=== PATIENT | female | born 1980 | race Caucasian/White ===

== ENCOUNTER 2020-02-26 13:30 | Outpatient (REF) | payer OTHER, SELFPAY ==
[2020-02-26 14:29] LABS: Blood Urea Nitrogen 25 mg/dL (9-16); Estimated Glomerular Filt Rate 54
== END 2020-02-26 13:31 | disposition home or self-care (01) ==
LOC: HO.LAB 13:30
PROVIDERS: PCP Hospitalist; Visit Provider Psychiatry & Neurology Neurology
DX: Z01.812 Encounter for preprocedural laboratory examination (principal)
CPT/HCPCS: 82565; 84520

== ENCOUNTER 2020-02-29 16:01 | Outpatient (REF) | payer OTHER, SELFPAY ==
--- NOTE | 2020-02-29 | MR_ITS ---
EXAMINATION: MRI BRAIN WITHOUT AND WITH CONTRAST MR ANGIOGRAM HEAD WITHOUT CONTRAST CLINICAL INFORMATION: Intermittent right mydriasis. Evaluate for mass or aneurysm. COMPARISON: Brain MRI 02/11/2017. TECHNIQUE: Multiplanar MR imaging of the brain was performed without and with contrast. A three-dimensional [id number] acquisition of the intracranial vessels was also performed. MIP reconstructions were generated in multiple orientations at the acquisition workstation. Multiple three-dimensional surface rendered images and maximum intensity projection images were generated on a dedicated 3-D lab workstation. Arterial stenoses are measured in accordance with NASCET criteria or similar method if applicable. A total of 8 mL Gadavist was utilized for this examination. FINDINGS: Postcontrast images reveal no abnormal mass or enhancement within the intracranial compartment. No intracranial mass effect or midline shift. No abnormal extra-axial collection. Lateral and third ventricles are normal. No hydrocephalus. There is no acute territorial infarct. No pathological magnetic susceptibility artifact. Intracranial vascular flow voids are maintained. There is no mastoid middle ear effusion. No active paranasal sinus disease. Dedicated images through the orbits reveal no abnormal finding. Severe no abnormal retrobulbar mass or enhancement. Intracranial internal carotid arteries are patent. Intradural vertebral artery segments and basilar artery are patent. Visualized anterior, middle, and posterior cerebral artery complexes are normal. No high-grade stenosis or proximal occlusion is visualized within the intracranial vessels. No evidence of aneurysm. MR/MR head/brain wo/w con IMPRESSION: Normal MRI of the brain and MR angiogram. No discrete enhancing intracranial mass and no evidence of aneurysm.
--- NOTE | 2020-02-29 | MR_ITS ---
EXAMINATION: MRI BRAIN WITHOUT AND WITH CONTRAST MR ANGIOGRAM HEAD WITHOUT CONTRAST CLINICAL INFORMATION: Intermittent right mydriasis. Evaluate for mass or aneurysm. COMPARISON: Brain MRI 02/11/2017. TECHNIQUE: Multiplanar MR imaging of the brain was performed without and with contrast. A three-dimensional tgig-pp-oprsuj acquisition of the intracranial vessels was also performed. MIP reconstructions were generated in multiple orientations at the acquisition workstation. Multiple three-dimensional surface rendered images and maximum intensity projection images were generated on a dedicated 3-D lab workstation. Arterial stenoses are measured in accordance with NASCET criteria or similar method if applicable. A total of 8 mL Gadavist was utilized for this examination. FINDINGS: Postcontrast images reveal no abnormal mass or enhancement within the intracranial compartment. No intracranial mass effect or midline shift. No abnormal extra-axial collection. Lateral and third ventricles are normal. No hydrocephalus. There is no acute territorial infarct. No pathological magnetic susceptibility artifact. Intracranial vascular flow voids are maintained. There is no mastoid middle ear effusion. No active paranasal sinus disease. Dedicated images through the orbits reveal no abnormal finding. Severe no abnormal retrobulbar mass or enhancement. Intracranial internal carotid arteries are patent. Intradural vertebral artery segments and basilar artery are patent. Visualized anterior, middle, and posterior cerebral artery complexes are normal. No high-grade stenosis or proximal occlusion is visualized within the intracranial vessels. No evidence of aneurysm. MR/MR angio head wo con IMPRESSION: Normal MRI of the brain and MR angiogram. No discrete enhancing intracranial mass and no evidence of aneurysm.
== END 2020-02-29 16:02 | disposition home or self-care (01) ==
LOC: HO.MRI 16:01
PROVIDERS: PCP Hospitalist; Visit Provider Psychiatry & Neurology Neurology
DX: H57.04 Mydriasis (principal)
CPT/HCPCS: 70544; 70553; A9585

== ENCOUNTER → 2020-03-04 12:51 | Outpatient (BNVA) | payer OTHER, SELFPAY | PROVIDERS: PCP Hospitalist; Referring Provider Hospitalist; Visit Provider Obstetrics & Gynecology | DX: Z76.89 Persons encountering health services in other specified circumstances (principal) ==

== ENCOUNTER 2020-06-09 08:53 | Outpatient (REF) | payer OTHER, SELFPAY ==
[2020-06-09 14:52] LABS: CT PCR NOT DETECTED (Not Detect.); NG PCR NOT DETECTED (Not Detect.)
== END 2020-06-09 08:54 | disposition home or self-care (01) ==
LOC: HO.LAB 08:53
PROVIDERS: PCP Hospitalist; Visit Provider Advanced Practice Midwife
DX: Z30.430 Encounter for insertion of intrauterine contraceptive device (principal); Z79.899 Other long term (current) drug therapy; Z32.02 Encounter for pregnancy test, result negative
CPT/HCPCS: 58300; 81025; 87491; 87591; J7298

== ENCOUNTER → 2020-07-25 09:04 | Outpatient (BNVA) | payer OTHER, SELFPAY | PROVIDERS: PCP Hospitalist; Visit Provider Advanced Practice Midwife ==

== ENCOUNTER 2020-09-14 12:00 | Outpatient (RCR) | payer OTHER, SELFPAY ==
--- NOTE | 2020-07-28 15:25 | MHC.PT.EP ---
[facility] [place] Office [place] Office [place] Office [address] Arben Valverde [address] [phone] F: [phone] F: [phone] F: [phone] F: [phone] Physical Therapy Plan of Care Date of Evaluation: Date of Surgery: N/A Diagnosis: strain of other muscles, fascia and tendons at shoulder and upper right arm, initial encounter Assessment: Working PT diagnoses include cervical radiculopathy, muscular tension/spasm, and pain as a result of habitual poor posture. Will monitor symptom progression and treat accordingly. pt did centralize w/ repeated cervical retraction w/ R SB. pt presents to physical therapy with pain, decreased range of motion, decreased strength, impaired functional mobility, and impaired postural awareness. pt is a good candidate for skilled PT due to age, potential remediation of impairments, typical disease/condition progression and prognosis, comorbidities, and motivation. pt would benefit from tailored strengthening and stretching exercise program, functional training, postural re-training, neuromuscular re-education, and modalities as needed for pain. Frequency and Duration: The patient will be seen 2x/wk for 5 wks Short Term Goals: pt will be I w/ HEP to promote self-management of condition. pt will demo proper sitting posture w/ lumbar roll to facilitate neutral spine assessed via teachback. 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 pt will report a statistically significant improvement in self-reported outcome measure, NDI, to promote return to PLOF. Treatment Plan: Modalities to reduce pain, spasms and effusion. Manual therapy to restore motion and function. Therapeutic exercise to improve strength and flexibility. Neuromuscular re-education for posture and balance. Therapeutic activities to return to functional activities of daily living. Electronically signed by: Justina Taylor PT, DPT Please sign and return to therapist. Thank you for your referral.
== END 2020-09-14 14:26 | disposition home or self-care (01) ==
LOC: HO.PT 12:00
PROVIDERS: PCP Family Medicine; Visit Provider Family Medicine
DX: S46.811A Strain of other muscles, fascia and tendons at shoulder and upper arm level, right arm, initial encounter (principal)
CPT/HCPCS: 97012; 97110; 97112; 97140; 97161

== ENCOUNTER → 2020-11-15 12:04 | Outpatient (BNVA) | payer OTHER, SELFPAY | PROVIDERS: PCP Family Medicine; Visit Provider Anesthesiology | DX: M50.30 Other cervical disc degeneration, unspecified cervical region (principal); M54.12 Radiculopathy, cervical region; M47.812 Spondylosis without myelopathy or radiculopathy, cervical region; R51.9 Headache, unspecified; I10 Essential (primary) hypertension; D64.9 Anemia, unspecified; Z88.1 Allergy status to other antibiotic agents; Z88.0 Allergy status to penicillin; Z88.8 Allergy status to other drugs, medicaments and biological substances | CPT/HCPCS: J3300 ==

== ENCOUNTER 2020-11-15 16:31 | Outpatient (REF) | payer OTHER, SELFPAY ==
--- NOTE | ~2020-11-15 | MR_ITS ---
EXAMINATION: MR CERVICAL SPINE WITHOUT CONTRAST CLINICAL INFORMATION: Spondylosis without myelopathy. Radiculopathy. COMPARISON: None available. TECHNIQUE: MRI of the cervical spine was obtained using routine sequences without contrast. FINDINGS: Mild reversal the normal cervical lordosis centered on C4-C5. Otherwise, normal anatomic alignment. Normal, homogeneous marrow signal throughout. No suspicious marrow edema. The vertebral body heights are maintained. The intervertebral discs are of normal height and signal. The spinal cord is normal in appearance. Limited evaluation of the soft tissues of the neck without demonstrated abnormalities. The flow voids of the major cervical vessels are maintained. Normal appearance of the cervicomedullary junction and visualized posterior fossa. SPINAL LEVELS: C2-C3: Normal annular contour. There is no uncovertebral joint arthropathy. There is mild left and no right facet joint arthropathy. There is no neural foraminal stenosis. There is no spinal canal stenosis. C3-C4: Mild disc-osteophyte complex. There is no uncovertebral joint arthropathy. There is mild bilateral facet joint arthropathy. There is no neural foraminal stenosis. There is no spinal canal stenosis. C4-C5: Mild disc-osteophyte complex. There is mild right and no left uncovertebral joint arthropathy. There is mild bilateral facet joint arthropathy. There is no neural foraminal stenosis. There is no spinal canal stenosis. C5-C6: Mild disc-osteophyte complex. There is mild right and no left uncovertebral joint arthropathy. There is mild left and no right facet joint arthropathy. There is no neural foraminal stenosis. There is no spinal canal stenosis. C6-C7: Mild disc-osteophyte complex. There is mild bilateral uncovertebral joint arthropathy. There is no facet joint arthropathy. There is no neural foraminal stenosis. There is no spinal canal stenosis. C7-T1: Normal annular contour. There is no uncovertebral joint arthropathy. There is no facet joint arthropathy. There is no neural foraminal stenosis. There is no spinal canal stenosis. MR/MR cervical spine wo con IMPRESSION: Mild multilevel degenerative spondyloarthropathy of the cervical spine as described in detail above. No overt spinal canal stenosis or nerve root compression.
== END 2020-11-15 16:32 | disposition home or self-care (01) ==
LOC: HO.MRI 16:31
PROVIDERS: PCP Family Medicine; Visit Provider Anesthesiology
DX: M47.812 Spondylosis without myelopathy or radiculopathy, cervical region (principal); M54.12 Radiculopathy, cervical region; M50.30 Other cervical disc degeneration, unspecified cervical region
CPT/HCPCS: 72141

== ENCOUNTER → 2020-12-09 09:10 | Outpatient (BNVA) | payer OTHER, SELFPAY | PROVIDERS: PCP Family Medicine; Visit Provider Advanced Practice Midwife ==

== ENCOUNTER → 2020-12-12 08:36 | Outpatient (BNVA) | payer OTHER, SELFPAY | PROVIDERS: PCP Family Medicine; Visit Provider Advanced Practice Midwife | DX: Z30.431 Encounter for routine checking of intrauterine contraceptive device (principal); Z30.432 Encounter for removal of intrauterine contraceptive device | CPT/HCPCS: 58301 ==

== ENCOUNTER 2021-01-03 16:00 | Outpatient (RCR) | payer OTHER, SELFPAY ==
--- NOTE | 2020-11-23 15:17 | MHC.PT.EP ---
[facility] [place] Office [place] Office [place] Office [address] Arben Valverde [address] [phone] F: [phone] F: [phone] F: [phone] F: [phone] Physical Therapy Plan of Care Date of Evaluation: Date of Surgery: N/A Diagnosis: Cervical spondylosis w/o myelopathy Assessment: Pt is a 40 year old woman who presents to therapy with signs and symptoms consistent with cervical spondylosis. Self reported limitations include pain while sitting at her computer for prolonged periods, pain with lifting and pain with driving. Upon examination, impairments include limited neck ROM, palpable trigger points/tightness in the UTs (R>L) and general neck tightness. Pt shows excellent rehabilitation potential 2* to her age and she is very self aware/motivated. Pt will be seen for 2x/week for 4 weeks and will be reassessed to see if further treatment is necessary. Frequency and Duration: The patient will be seen 2x/week for 4 weeks Short Term Goals: 1. Pt will be I in HEP in 2 weeks in order to maximize benefits of therapy. 2. Pt will be able to sit for > 30 minutes with <2/10 neck pain in 2 weeks order to complete work related computer activities. 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 Pt will decrease score on the NDI from 56% to <46% in 4 weeks to show an increase in ability to perform activities of her daily life. 2. 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 Treatment Plan: Modalities to reduce pain, spasms and effusion. Manual therapy to restore motion and function. Therapeutic exercise to improve strength and flexibility. Neuromuscular re-education for posture and balance. Therapeutic activities to return to functional activities of daily living. Electronically signed by: Jeimy Montes PT, DPT Please sign and return to therapist. Thank you for your referral.
--- NOTE | 2021-01-19 07:44 | MHC.PT.DC ---
[facility] [place] Office [place] Office [place] Office [address] Arben Valverde [address] [phone] F: [phone] F: [phone] F: [phone] F: [phone] Physical Therapy Discharge Report Diagnosis: Cervical spondylosis w/o myelopathy Date of Surgery: N/A Date of Evaluation: 11/23/20 Date of Discharge: 01/05/21 Treatments to Date: 8 Cancellations to Date: 2 No Shows to Date: 1 Discharge Status: Discharge Summary: Asha had been progressing in therapy and was independent with her HEP at last attended visit. She cancelled due to back pain and no showed for her last scheduled visit. Current status is unknown. Electronically signed by: Jeimy Montes PT, DPT Please sign and return to therapist. Thank you for your referral.
== END 2021-01-19 07:46 | disposition home or self-care (01) ==
LOC: HO.PT 16:00
PROVIDERS: Visit Provider Anesthesiology
DX: M47.812 Spondylosis without myelopathy or radiculopathy, cervical region (principal)
CPT/HCPCS: 97012; 97110; 97140; 97161; 97530

== ENCOUNTER → 2021-03-13 12:45 | Outpatient (BNVA) | payer OTHER, SELFPAY | PROVIDERS: Visit Provider Anesthesiology ==

== ENCOUNTER 2021-03-28 05:54 | Outpatient (REF) | payer OTHER, SELFPAY | END 2021-03-28 05:55 | disposition home or self-care (01) | LOC: HO.RADIR 05:54 | PROVIDERS: Visit Provider Anesthesiology | DX: Z13.89 Encounter for screening for other disorder (principal) ==

== ENCOUNTER 2021-05-04 07:49 | Outpatient (REF) | payer OTHER, SELFPAY ==
[2021-05-04 08:39] LABS: Hematocrit 38.4 % (37.0-47.0); Hemoglobin 12.5 g/dl (12.0-16.0); Mean Corpuscular HGB Conc 32.6 g/dl (31.0-35.0); Mean Corpuscular Volume 85.9 fL (80.0-98.0); Platelet Count 215 X10*3/uL (160-400); Red Blood Count 4.47 X10*6/uL (4.20-5.50); Red Cell Distribution Width 12.6 % (11.0-16.0); White Blood Count 5.7 X10*3/uL (4.8-10.8)
[2021-05-04 08:54] LABS: Alanine Aminotransferase 11 U/L (0-31); Albumin Level 4.6 g/dL (3.5-5.0); Alkaline Phosphatase 43 U/L (39-117); Anion Gap 14 (12-20); Aspartate Amino Transferase 17 U/L (5-31); Bilirubin Total 1.2 mg/dL (0.0-1.0); Blood Urea Nitrogen 16 mg/dL (9-16); Calcium 10.2 mg/dL (8.4-10.2); Carbon Dioxide 24 mmol/L (22-29); Chloride 106 mmol/L (96-108); Cholesterol 193 mg/dL; Estimated Glomerular Filt Rate > 60; Glucose Fasting 102 mg/dL (60-99); HDL Cholesterol 44 mg/dL; LDL Cholesterol Calculated 129 mg/dl; Potassium 4.6 mmol/L (3.3-5.1); Sodium 139 mmol/L (135-145); Total Protein 7.5 g/dL (6.5-8.0); Triglycerides 101 mg/dL
[2021-05-04 09:18] LABS: TSH reflex Free T4 1.27 uIU/mL (0.32-4.0)
[2021-05-09 11:32] LABS: Vitamin D 25-OH, D2 <4 ng/mL; Vitamin D 25-OH, D3 42 ng/mL; Vitamin D 25-OH, Total 42 ng/mL (30-100)
== END 2021-05-04 07:50 | disposition home or self-care (01) ==
LOC: HO.LAB 07:49
PROVIDERS: PCP Hospitalist; Visit Provider Hospitalist
DX: Z00.00 Encounter for general adult medical examination without abnormal findings (principal); M47.812 Spondylosis without myelopathy or radiculopathy, cervical region
CPT/HCPCS: 36415; 80053; 80061; 82306; 84443; 85027

== ENCOUNTER 2021-05-19 18:00 | Outpatient (REF) | payer OTHER, SELFPAY ==
--- NOTE | ~2021-05-19 | MR_ITS ---
EXAMINATION: MR CERVICAL SPINE WITHOUT CONTRAST MR THORACIC SPINE WITHOUT CONTRAST CLINICAL INFORMATION: Neck pain. Right-sided radiculopathy. Mid back pain. COMPARISON: MRI cervical spine dated 11/15/2020. TECHNIQUE: Multiplanar, multisequential imaging of the cervical and thoracic spine was performed without contrast. FINDINGS: CERVICAL SPINE: Vertebral Bodies And Paraspinal Soft Tissues: The marrow signal is homogeneous. There are no compression fractures or subluxations. The discs are well-hydrated. The paraspinal soft tissues are normal. The vertebral artery flow-voids are maintained. The imaged lung apices are grossly clear. Cervicomedullary Junction And Visualized Posterior Fossa: The craniovertebral junction and imaged portions of the brain parenchyma appear normal. No cord signal abnormality or syrinx is seen. Spinal Levels: C2-C3: No disc pathology, central canal stenosis, or foraminal narrowing. C3-C4: No significant disc abnormality. Patent central canal and foramina. C4-C5: Normal appearance of the disc without central canal stenosis or foraminal encroachment. C5-C6: Very small central disc protrusion. No central canal stenosis or foraminal narrowing. C6-C7: Minimal disc bulge. Patent central canal and foramina. Mild uncovertebral joint spurring. C7-T1: No disc pathology. No central canal stenosis or foraminal narrowing. THORACIC SPINE: The marrow signal is homogeneous. No subluxations are seen. There is a mild chronic superior endplate compression fracture deformity at the L1 level without bony retropulsion. No cord signal abnormality or syrinx is seen. The conus tip terminates normally at the T12-L1 level. The imaged cauda equina nerve roots are unremarkable. There is no central canal stenosis or foraminal narrowing. No disc protrusions are seen. The paraspinal soft tissues are normal. The imaged portions of the lungs are grossly clear. MR/MR thoracic spine wo con IMPRESSION: CERVICAL SPINE: Tiny central disc protrusion at the C5-C6 level and very mild uncovertebral joint spurring at the C6-C7 level with slight bulging of disc. Otherwise, relatively normal MRI of the cervical spine. THORACIC SPINE: Normal MRI of the thoracic spine. Mild chronic superior endplate compression fracture deformity without bony retropulsion at the L1 level.
== END 2021-05-19 18:01 | disposition home or self-care (01) ==
LOC: HO.MRI 18:00
PROVIDERS: Visit Provider Hospitalist
DX: M47.812 Spondylosis without myelopathy or radiculopathy, cervical region (principal); M50.30 Other cervical disc degeneration, unspecified cervical region; M54.12 Radiculopathy, cervical region; S46.811A Strain of other muscles, fascia and tendons at shoulder and upper arm level, right arm, initial encounter
CPT/HCPCS: 64405; 72141; 72146

== ENCOUNTER 2021-08-02 09:32 | Outpatient (REF) | payer OTHER, SELFPAY ==
--- NOTE | 2021-08-02 09:37 | EMG_ITS ---
This is a 41-year-old woman with a 1-year history of intermittent tightness in the right neck, relieved by putting pressure on the muscles and a tendency to have her head turning to the right. Her MRI has shown a mild disk bulge at C6-C7. PHYSICAL EXAMINATION: On examination, she is alert and oriented with no clear torticollis. Muscle tone and strength are normal. IMPRESSION: Torticollis. Nerve conduction EMG study: Normal motor and sensory nerve conduction velocity of the right upper extremity. EMG of the neck muscles including upper and mid cervical paraspinal, sternocleidomastoid, and trapezius and supraspinatus muscles shows mildly increased activity at rest in the sternomastoid and the right cervical paraspinal and subcapital muscles that suggest a mild case of torticollis. Clinical correlation is suggested. MD URIEL Reed/JAREN / [id number]
== END 2021-08-02 09:33 | disposition home or self-care (01) ==
LOC: HO.NEURO 09:32
PROVIDERS: PCP Hospitalist; Visit Provider Hospitalist
DX: M43.6 Torticollis (principal)
CPT/HCPCS: 95886; 95910

== ENCOUNTER 2021-08-04 15:51 | Outpatient (REF) | payer OTHER, SELFPAY ==
--- NOTE | ~2021-08-04 | XR_ITS ---
EXAMINATION: XR CERVICAL SPINE CLINICAL INFORMATION: M54.12 - Radiculopathy, cervical region COMPARISON: MR cervical 05/19/2021 TECHNIQUE: Cervical spine is imaged in 8 views including lateral flexion-extension views and oblique projections. FINDINGS: There is reversal cervical lordosis with mild rightward tilting cervical spine with mild levocurvature upper thoracic region. There is good range of motion with flexion or extension. There is no atlantoaxial subluxation, spondylolisthesis, or retrolisthesis. No instability. There is no cervical vertebral compression, destructive process, disc narrowing, or erosive changes. No prevertebral soft tissue swelling. The oblique view show no osseous narrowing of the neural foramina. The odontoid appears intact. XR/XR cervical spine w flex/ext IMPRESSION: -Reversal cervical lordosis with mild levocurvature cervical thoracic spine. -Good range of motion with flexion and extension. No instability. -No vertebral compression, disc narrowing, erosive changes.
== END 2021-08-04 15:52 | disposition home or self-care (01) ==
LOC: HO.XRAY 15:51
PROVIDERS: PCP Hospitalist; Visit Provider Nurse Practitioner Family
DX: M54.12 Radiculopathy, cervical region (principal); M50.30 Other cervical disc degeneration, unspecified cervical region
CPT/HCPCS: 72052

== ENCOUNTER 2022-07-16 16:29 | Outpatient (REF) | payer OTHER, SELFPAY ==
--- NOTE | ~2022-07-16 | XR_ITS ---
EXAMINATION: XR CERVICAL SPINE XR DORSAL SPINE XR LUMBAR SPINE CLINICAL INDICATIONS: Pain. Adult medical examination. COMPARISON: None available. TECHNIQUE: Cervical spine 3 views. Dorsal spine 3 views. Lumbar spine 5 views. FINDINGS: CERVICAL SPINE: There is mild straightening of the cervical lordosis. The vertebral heights, alignment and disc heights are normal. No visible acute fracture, dislocation or lytic process seen. The craniovertebral junction and the C1-C2 alignment is normal. The prevertebral and paravertebral soft tissues are normal. DORSAL SPINE: There is normal thoracic kyphosis. The vertebral heights, alignment and disc heights are normal. No visible acute fracture, dislocation or subluxation seen. The paravertebral soft tissues are normal. LUMBAR SPINE: Dextroscoliosis dorsal lumbar junction. There is maintained lumbar lordosis. There is minimal loss of superior endplate height of L1 vertebra. The rest of the vertebral heights, alignment and disc heights are normal. No subluxation seen on flexion-extension views. No lytic or sclerotic process. The paravertebral soft tissues are normal. XR/XR lumbar spine 4V min IMPRESSION: 1. Mild straightening of cervical lordosis, likely spasm. 2. No acute fracture or dislocation cervical spine. 3. Unremarkable dorsal spine exam. 4. Mild dextroscoliosis dorsal lumbar junction. There is minimal loss of superior endplate height L1 vertebra of indeterminate age. No lytic or sclerotic process seen. No subluxation seen on flexion-extension views.
--- NOTE | ~2022-07-16 | XR_ITS ---
EXAMINATION: XR CERVICAL SPINE XR DORSAL SPINE XR LUMBAR SPINE CLINICAL INDICATIONS: Pain. Adult medical examination. COMPARISON: None available. TECHNIQUE: Cervical spine 3 views. Dorsal spine 3 views. Lumbar spine 5 views. FINDINGS: CERVICAL SPINE: There is mild straightening of the cervical lordosis. The vertebral heights, alignment and disc heights are normal. No visible acute fracture, dislocation or lytic process seen. The craniovertebral junction and the C1-C2 alignment is normal. The prevertebral and paravertebral soft tissues are normal. DORSAL SPINE: There is normal thoracic kyphosis. The vertebral heights, alignment and disc heights are normal. No visible acute fracture, dislocation or subluxation seen. The paravertebral soft tissues are normal. LUMBAR SPINE: Dextroscoliosis dorsal lumbar junction. There is maintained lumbar lordosis. There is minimal loss of superior endplate height of L1 vertebra. The rest of the vertebral heights, alignment and disc heights are normal. No subluxation seen on flexion-extension views. No lytic or sclerotic process. The paravertebral soft tissues are normal. XR/XR thoracic spine 2V IMPRESSION: 1. Mild straightening of cervical lordosis, likely spasm. 2. No acute fracture or dislocation cervical spine. 3. Unremarkable dorsal spine exam. 4. Mild dextroscoliosis dorsal lumbar junction. There is minimal loss of superior endplate height L1 vertebra of indeterminate age. No lytic or sclerotic process seen. No subluxation seen on flexion-extension views.
--- NOTE | ~2022-07-16 | XR_ITS ---
EXAMINATION: XR CERVICAL SPINE XR DORSAL SPINE XR LUMBAR SPINE CLINICAL INDICATIONS: Pain. Adult medical examination. COMPARISON: None available. TECHNIQUE: Cervical spine 3 views. Dorsal spine 3 views. Lumbar spine 5 views. FINDINGS: CERVICAL SPINE: There is mild straightening of the cervical lordosis. The vertebral heights, alignment and disc heights are normal. No visible acute fracture, dislocation or lytic process seen. The craniovertebral junction and the C1-C2 alignment is normal. The prevertebral and paravertebral soft tissues are normal. DORSAL SPINE: There is normal thoracic kyphosis. The vertebral heights, alignment and disc heights are normal. No visible acute fracture, dislocation or subluxation seen. The paravertebral soft tissues are normal. LUMBAR SPINE: Dextroscoliosis dorsal lumbar junction. There is maintained lumbar lordosis. There is minimal loss of superior endplate height of L1 vertebra. The rest of the vertebral heights, alignment and disc heights are normal. No subluxation seen on flexion-extension views. No lytic or sclerotic process. The paravertebral soft tissues are normal. XR/XR cervical spine 2V IMPRESSION: 1. Mild straightening of cervical lordosis, likely spasm. 2. No acute fracture or dislocation cervical spine. 3. Unremarkable dorsal spine exam. 4. Mild dextroscoliosis dorsal lumbar junction. There is minimal loss of superior endplate height L1 vertebra of indeterminate age. No lytic or sclerotic process seen. No subluxation seen on flexion-extension views.
== END 2022-07-16 16:30 | disposition home or self-care (01) ==
LOC: HO.XRAY 16:29
PROVIDERS: PCP Hospitalist; Visit Provider Internal Medicine
DX: M47.812 Spondylosis without myelopathy or radiculopathy, cervical region (principal); S46.811A Strain of other muscles, fascia and tendons at shoulder and upper arm level, right arm, initial encounter
CPT/HCPCS: 72040; 72070; 72110

== ENCOUNTER 2022-08-22 07:34 | Outpatient (REF) | payer OTHER, SELFPAY ==
--- NOTE | ~2022-08-22 | MM_ITS ---
EXAMINATION: MM SCREENING DIGITAL BREAST TOMOSYNTHESIS, BILATERAL CLINICAL INFORMATION: Screening. Asymptomatic. Age 42. No prior breast imaging. No known family history breast cancer. The lifetime risk of breast cancer based on the Tyrer-Cuzick Model is 11%. COMPARISON: None (current study represents initial baseline exam). TECHNIQUE: Digital breast tomosynthesis is performed in both the craniocaudal and mediolateral oblique views along with computer-aided detection (CAD). Synthesized 2D images are generated from the tomosynthesis. FINDINGS: There are scattered areas of fibroglandular density (ACR BI-RADS breast composition Category b). There are no significant masses, abnormal calcifications, or other abnormalities. Breast tissue composition borders on heterogeneously dense. No architectural abnormality. The axilla and skin contours are unremarkable. Incidental low left axillary tail node. MM/MM tomosynthesis screening BI IMPRESSION: No mammographic evidence of malignancy. ASSESSMENT: BI-RADS 2: Benign RECOMMENDATION: Routine annual mammography screening. This patient's information was entered into a reminder system with a target due date for their next mammogram.
== END 2022-08-22 07:35 | disposition home or self-care (01) ==
LOC: HO.MAMMO 07:34
PROVIDERS: PCP Hospitalist; Visit Provider Hospitalist
DX: Z12.31 Encounter for screening mammogram for malignant neoplasm of breast (principal)
CPT/HCPCS: 77063; 77067

== ENCOUNTER 2022-12-10 08:32 | Outpatient (REF) | payer OTHER, SELFPAY ==
--- NOTE | ~2022-12-10 | XR_ITS ---
EXAMINATION: XR FOREARM, LEFT CLINICAL INFORMATION: Fracture COMPARISON: None available. TECHNIQUE: AP and lateral views of the left forearm were obtained. FINDINGS: No acute fracture or dislocation. Joint spaces are maintained. Soft tissues are unremarkable. No joint effusion. XR/XR forearm LT 2V IMPRESSION: No acute osseous abnormality. If persistent clinical concern consider repeat radiographs in 2 weeks to assess for any interval healing of a radiographically occult fracture.
== END 2022-12-10 08:33 | disposition home or self-care (01) ==
LOC: HO.HOSX 08:32
PROVIDERS: Visit Provider Physician Assistant
DX: M79.632 Pain in left forearm (principal); S50.12XA Contusion of left forearm, initial encounter; W10.8XXA Fall (on) (from) other stairs and steps, initial encounter; Y93.9 Activity, unspecified; Y92.9 Unspecified place or not applicable; Y99.9 Unspecified external cause status
CPT/HCPCS: 73090

== ENCOUNTER 2022-12-10 08:49 | Outpatient (AMB) | payer OTHER, SELFPAY ==
--- NOTE | 2022-12-10 08:59 | MHC.OFFVIS ---
Intake Intake Visit Reasons: TH- left forearm Allergies sumatriptan Allergy (Severe, Verified 07/11/22 09:55) chest spasm amoxicillin [Amoxicillin] Allergy (Unknown, Verified 07/11/22 09:55) Rash doxycycline Allergy (Unknown, Verified 07/11/22 09:55) Rash penicillin V Allergy (Unknown, Verified 07/11/22 09:55) Rash Penicillins Allergy (Unknown, Verified 07/11/22 09:55) Rash HPI TH- left forearm HPI Details 42 yo female presents to the office today for an injury she sustained to her left forearm over the weekend. She states she was walking on the deck stairs outside when she slipped and her arm became wedged between the steps. She noticed immediate pain and swelling followed by bruising. She denies pain with flexion or extension. [facility] Medical History Cervical muscle strain Degeneration, intervertebral disc, cervical History of migraine Hypertension Radiculopathy, cervical Spondylosis of cervical spine without myelopathy Surgical History History of dilation and curettage History of wisdom tooth extraction Family History Father Hyperlipidemia Hypothyroid Mother Hypothyroid Hypertension Brother No problems noted. Sister In good health Sister In good health Son In good health Son In good health Social History Housing: House Alcohol intake: never Patient Tobacco Use Status: Never used Tobacco service: No Gender identity: Female Female Reproductive History Menstrual Age of Menarche: 12 Review of Systems Const All systems reviewed & are unremarkable except as noted in HPI and below Physical Exam Const General: cooperative and no acute distress Orientation/consciousness: patient oriented x3 Resp Effort & Inspection: normal respiratory effort and able to speak in complete sentences Cardio Peripheral pulses: Peripheral pulses 2+ throughout Neuro General: patient oriented x3 Extrem Other: Left forearm skin intact. Bruising over the dorsum of the proximal forearm and distal volar forearm. No significant bony tenderness present. She can flex and extend the wrist and elbow. No pain with supination or pronation. NVI. Results Reviewed Results Reviewed: Xrays were obtained in the office today and personally reviewed by me of the left forearm which are negative for acute fracture. Assessment & Plan Assessment & Plan (1) Contusion of left forearm: Code(s): S50.12XA - Contusion of left forearm, initial encounter Qualifiers: Encounter type: initial encounter Qualified Code(s): S50.12XA - Contusion of left forearm, initial encounter Plan: There is no radiographic evidence of acute fracture. I encouraged icing and NSAIds prn. She will increase activity as tolerated and see me back if symptoms persist or worsen. She is content with this plan. Coding Level of Care Code New Pt Level 3 (29251) Diagnoses Contusion of left forearm, initial encounter S50.12XA Encounter type: initial encounter
== END 2022-12-10 09:04 | disposition home or self-care (01) ==
PROVIDERS: PCP Hospitalist; Visit Provider Physician Assistant
DX: S50.12XA Contusion of left forearm, initial encounter (principal)
CPT/HCPCS: 99203

== ENCOUNTER 2022-12-28 12:13 | Outpatient (AMB) | payer OTHER, SELFPAY ==
--- NOTE | 2022-12-28 12:14 | A.OFFVIS_ITS ---
Intake Intake Visit Reasons: facet inj Allergies sumatriptan Allergy (Severe, Verified 07/11/22 09:55) chest spasm amoxicillin [Amoxicillin] Allergy (Unknown, Verified 07/11/22 09:55) Rash doxycycline Allergy (Unknown, Verified 07/11/22 09:55) Rash penicillin V Allergy (Unknown, Verified 07/11/22 09:55) Rash Penicillins Allergy (Unknown, Verified 07/11/22 09:55) Rash HPI facet inj HPI Details Patient presents for scheduled procedure. Denies any recent cough, cold, infection, fever or other significant changes in medical history since last office visit. [facility] Medical History Cervical muscle strain Degeneration, intervertebral disc, cervical History of migraine Hypertension Radiculopathy, cervical Spondylosis of cervical spine without myelopathy Surgical History History of dilation and curettage History of wisdom tooth extraction Family History Father Hyperlipidemia Hypothyroid Mother Hypothyroid Hypertension Brother No problems noted. Sister In good health Sister In good health Son In good health Son In good health Social History Housing: House Alcohol intake: never Patient Tobacco Use Status: Never used Tobacco service: No Gender identity: Female Female Reproductive History Menstrual Age of Menarche: 12 Office Procedures Cervical/Thoracic Facet Inj Details: Therapeutic Cervical Medial Branch Block, Right C4, C5, C6 medial branches After obtaining written consent, pre-procedure blood pressure and pulse were recorded and are in the nursing record for review. The patient was placed in prone position. The respective cervical area was prepped with chloraprep. A 25 gauge 1.5 inch needle was inserted into the target medial branch nerve under ultrasound guidance, which was used to identify the articular pillars. No paresthesias were elicited with needle placement and aspiration was negative for blood and CSF. Next 1 ml 0.5% bupivicaine mixed with triamcinolone 10 mg was injected (0.5 cc total per level). The identical procedure was performed at the remaining levels. The skin was cleansed and a sterile bandage was applied. Following the procedure the patient's vital signs were stable. The patient tolerated the procedure well and no complications were encountered. Following the procedure the patient's vital signs were stable. The patient was discharged home in good condition with post-procedural instructions. Time Out: Immediately prior to the procedure, the following was verbally confirmed that there is a signed consent form and that the correct patient, planned procedure, site and side are consistent with documentation and that necessary equipment and/or blood products are available prior to the start of the case. Complications: none EBL: <5 cc 32989 - second level, with Fluoroscopy (With ultrasound) Procedure code (CPT) selection complete Assessment & Plan Assessment & Plan (1) Spondylosis of cervical spine without myelopathy: Code(s): M47.812 - Spondylosis without myelopathy or radiculopathy, cervical region Plan Patient is status post therapeutic right cervical medial branch blocks. Patient tolerated procedure well and was discharged home in stable condition with discharge instructions. All questions were answered. We will follow-up via telephone or in clinic to assess response to therapy. A follow-up appointment was made during today's visit. Coding Level of Care Code Procedure Only Diagnoses Spondylosis of cervical spine without myelopathy M47.812 CPT Codes Facet Injection Cervical/Thoracic - CPT: 45171 - second level, with Fluoroscopy ([id number])
== END 2023-01-03 16:52 | disposition home or self-care (01) ==
PROVIDERS: PCP Hospitalist; Visit Provider Internal Medicine
DX: M47.812 Spondylosis without myelopathy or radiculopathy, cervical region (principal)
CPT/HCPCS: 64490; 64491

== ENCOUNTER → 2022-12-28 12:13 | Outpatient (BNVA) | payer OTHER, SELFPAY | PROVIDERS: PCP Hospitalist; Visit Provider Internal Medicine | DX: M47.812 Spondylosis without myelopathy or radiculopathy, cervical region (principal) | CPT/HCPCS: 64490; 64491; J0665; J3301 ==

== ENCOUNTER 2023-03-07 15:04 | Outpatient (REF) | payer OTHER, SELFPAY ==
--- NOTE | ~2023-03-07 | XR_ITS ---
EXAMINATION: XR THORACOLUMBAR SPINE CLINICAL INFORMATION: Torticollis COMPARISON: None available. TECHNIQUE: 3 views FINDINGS: The vertebral alignment is normal. No intrinsic bony abnormality. The disc heights and neural foramina are well maintained. The endplates and posterior elements are normal. No fracture or subluxation. The surrounding prevertebral soft tissues are unremarkable. XR/XR thoracic spine 2V IMPRESSION: No compression fractures or subluxations are identified. The disc spaces are preserved. No endplate changes are seen. The prevertebral soft tissues are normal. The foramina are patent.
--- NOTE | ~2023-03-07 | XR_ITS ---
EXAMINATION: XR CHEST CLINICAL INFORMATION: Torticollis COMPARISON: 08/27/2018 TECHNIQUE: 2 views of the chest were obtained. FINDINGS: No significant abnormality is noted involving the heart, lungs, mediastinum, bony thorax or soft tissues. XR/XR chest 2V IMPRESSION: Unremarkable examination with no interval change.
== END 2023-03-07 15:05 | disposition home or self-care (01) ==
LOC: HO.XRAY 15:04
PROVIDERS: Visit Provider Registered Nurse
DX: M43.6 Torticollis (principal)
CPT/HCPCS: 71046; 72070

== ENCOUNTER 2023-05-22 08:24 | Outpatient (REF) | payer OTHER, SELFPAY ==
[2023-05-22 08:52] LABS: Hematocrit 37.7 % (37.0-47.0); Hemoglobin 12.5 g/dl (12.0-16.0); Mean Corpuscular HGB Conc 33.2 g/dl (31.0-35.0); Mean Corpuscular Hemoglobin 27.9 pg (27.0-33.0); Mean Corpuscular Volume 84.2 fL (80.0-98.0); Platelet Count 236 X10*3/uL (160-400); Red Blood Count 4.48 X10*6/uL (4.20-5.50); Red Cell Distribution Width 12.9 % (11.0-16.0); White Blood Count 5.9 X10*3/uL (4.8-10.8)
[2023-05-22 09:42] LABS: Alanine Aminotransferase 18 U/L (0-31); Albumin Level 4.4 g/dL (3.5-5.0); Alkaline Phosphatase 40 U/L (39-117); Anion Gap 10 (12-20); Aspartate Amino Transferase 20 U/L (5-31); Bilirubin Total 0.8 mg/dL (0.0-1.0); Blood Urea Nitrogen 16 mg/dL (9-16); Calcium 9.8 mg/dL (8.4-10.2); Carbon Dioxide 26 mmol/L (22-29); Chloride 108 mmol/L (96-108); Cholesterol 177 mg/dL (<200); Estimated Glomerular Filt Rate > 60; Glucose Fasting 95 mg/dL (60-99); HDL Cholesterol 52 mg/dL (>40); LDL Cholesterol Calculated 113 mg/dL (<100); Magnesium 2.1 mg/dL (1.6-2.6); Potassium 5.2 mmol/L (3.3-5.1); Sodium 139 mmol/L (135-145); Total Protein 7.3 g/dL (6.5-8.0); Triglycerides 61 mg/dL (<150)
[2023-05-22 09:59] LABS: TSH reflex Free T4 1.11 uIU/mL (0.32-4.0)
[2023-05-25 00:23] LABS: Copper, serum 109 mcg/dL (70-175)
[2023-05-29 11:48] LABS: Testosterone, Free 4.2 pg/mL (0.1-6.4); Testosterone, Total 40 ng/dL (2-45)
== END 2023-05-22 08:25 | disposition home or self-care (01) ==
LOC: HO.LAB 08:24
PROVIDERS: Absent Provider Registered Nurse Emergency; Visit Provider Hospitalist
DX: Z00.00 Encounter for general adult medical examination without abnormal findings (principal); Z13.6 Encounter for screening for cardiovascular disorders; M43.6 Torticollis
CPT/HCPCS: 36415; 80053; 80061; 82525; 83735; 84402; 84403; 84443; 85027

== ENCOUNTER 2023-05-22 09:06 | Outpatient (AMB) | payer OTHER, SELFPAY ==
[2023-05-22 09:24] VITALS: BP 138/90; PULSE 83; RESP 13; TEMP 36.3; O2SAT 97; BMI 27.2
--- NOTE | 2023-05-22 09:24 | MHC.PC.OV ---
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: No Accompanied by: Self / Same As Patient Allergies sumatriptan Allergy (Severe, Verified 05/22/23 09:57) chest spasm amoxicillin [Amoxicillin] Allergy (Unknown, Verified 05/22/23 09:57) Rash doxycycline Allergy (Unknown, Verified 05/22/23 09:57) Rash penicillin V Allergy (Unknown, Verified 05/22/23 09:57) Rash Penicillins Allergy (Unknown, Verified 05/22/23 09:57) Rash Medication List - Last Reconciled 05/22/23 by Irma Palencia, HEALTH RESEARCHER- atenolol 25 mg PO DAILY 3 months baclofen 10 mg PO BID chlorzoxazone 500 mg PO BID PRN chlorzoxazone 500 mg PO BID PRN fremanezumab-vfrm (Ajovy Syringe) 225 mg (1.5 mL) subcut .monthly 30 days lisinopril 10 mg PO DAILY rimegepant (Nurtec ODT) 75 mg PO DAILY PRN 30 days Tobacco use date assessed: 05/22/23 Dental Screening Dental Screen Date: 05/22/23 Did you have a dental visit in the last 12 months?: Yes Did you have a dental problem in the last 6 months where you did not have access to dental care?: No Was dental information given to patient?: Patient has dentist HPI HPI Comments History of Present Illness Details 42-year-old female with migraines, hypothyroidism, hypertension, torticollis, spondylosis, cervical radiculopath, uvula devation & enlarged tonsils, 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 MRI/MRA done in past. 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 Wears glasses & contacts Reports vision stable Skin - no issues Family hx: Mom HTN, pituatary adenomas x 3 benign removed Dad Hypothyroid 2 sons alive and well Last set of labs 05/04/2021 showed a fasting glucose of 102, total bilirubin 1.2 Here today to establish care. Undergoing active treatment for torticollis. Botox every 3 months. Therapeutic massages twice per month with great effect. Sparing use of muscle relaxers as needed. Labs done today. Reviewed with her. Within normal limits with the exception potassium 5.2. Patient reports that she did drink a coconut water prior to getting the results drawn. Has no clinical concern. Offered and declined to repeat at this time. Reports yandy COVID and shortly after felt enlargement in her tonsils and uvula deviation to the right. It has stayed this way for several years now. [facility] Medical History Cervical muscle strain Spondylosis of cervical spine without myelopathy Radiculopathy, cervical Degeneration, intervertebral disc, cervical Hypertension History of migraine Surgical History History of wisdom tooth extraction History of dilation and curettage Family History Father Hyperlipidemia Hypothyroid Mother Hypothyroid Hypertension Brother No problems noted. 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 1. Little interest or pleasure in doing things: not at all 2. Feeling down, depressed, or hopeless: not at all 3. Trouble falling or staying asleep, or sleeping too much: not at all 4. Feeling tired or having little energy: not at all 5. Poor appetite or overeating: not at all 6. Feeling bad about yourself - or that you are a failure or have let yourself or your family down: not at all 7. Trouble concentrating on things, such as reading the newspaper or watching television: not at all 8. Moving or speaking so slowly that other people could have noticed. Or the opposite - being so fidgety or restless that you have been moving around a lot more than usual: not at all 9. Thoughts that you would be better off or of hurting yourself in some way: not at all Total score: 0 Depression Screening Interpretation: Negative Depression Screening Done: Yes 96995 - PHQ-9 Billing: Yes Source: Developed by Drs. Griffin Esteves, Anna Lua, Miguel Jose and colleagues, with an educational alex from [employer]. Thrive Questionnaire Date Thrive assessed: 05/22/23 I am a: Patient What is your living situation today?: I have a steady place to live Within the past 12 months, did the food you bought not last and you didn't have the money to get more?: Never true Within the past 12 months, did you worry whether your food would run out before you got money to buy more?: Never true Do you have trouble paying for medicines?: No Do you have trouble getting transportation to medical appointments?: No Do you have trouble paying your heating and electricity bill?: No Do you have trouble taking care of your child, family member or friend?: No Do you have trouble with day-to-day activities such as bathing, preparing meals, shopping, managing finances, etc.?: No Are you currently unemployed and looking for a job?: No Are you interested in more education?: No Please select the resources that you would like help with: None Currently or been in a relationship where the following occur: no concerns reported THRIVE Score: 0 AUDIT C Alcohol Use Questionnaire (AUDIT-C) 1. How often do you have a drink containing alcohol?: Never 3. How often do you have six or more drinks on one occasion?: Never Total Score: 0 Score Reviewed/Action Taken: Yes LAUREN-7 AMB Questionnaire LAUREN-7 Date LAUREN - 7 assessed: 05/22/23 Feeling nervous, anxious, or on edge: 0 = Not at all Not being able to stop or control worryin = Not at all Worrying too much about different things: 0 = Not at all Trouble relaxin = Not at all Being so restless that it is hard to sit still: 0 = Not at all Becoming easily annoyed or irritable: 0 = Not at all Feeling afraid as if something awful might happen: 0 = Not at all Total LAUREN-7 score (0-4 normal; 5-9 mild; 10-14 moderate; 15-21 severe): 0 Source: Developed by Drs. Griffin Esteves, Anna Lua, Miguel Jose and colleagues, with an educational alex from [employer]. LAUREN-7 Assessment Billing LAUREN-7 Assessment Tool: LAUREN-7 Assessment 52624 Review of Systems Const All systems reviewed & are unremarkable except as noted in HPI and below Physical exam (Primary Care) Vital Signs: Last Vital Signs Temp 97.4 F 05/22/23 09:24 Pulse 83 05/22/23 09:24 Resp 13 05/22/23 09:24 BP 138/90 H 05/22/23 09:24 Pulse Ox 97 05/22/23 09:24 Oxygen Delivery Method Room Air 05/22/23 09:24 BMI result Body Mass Index 27.2 Tobacco/Smoking Status: Tobacco use Status Tobacco use date assessed 05/22/23 05/22/23 09:35 Patient Tobacco Use Status Never used Tobacco 05/22/23 09:28 e-Cigarette/Vaping Use Never Used 05/22/23 09:35 PHQ-9: PHQ-9 Score PHQ-9: Total score 0 05/22/23 10:23 Depression Screening Interpretation: Negative Thrive Assessment: Date of Thrive Assessment Date Thrive assessed 05/22/23 05/22/23 09:35 Currently or been in a relationship where the following occur: no concerns reported Const Other: Awake alert NAD Sclera and conjunctiva clear bilat TM intact and clear bilat MMM, pharynx WNL, uvula deviated to the right, no appreciable tonsillar enlargement Thyroid palpable, nontender, no nodules appreciated, trachea midline RRR LS CTAB Assessment and Plan Assessment & Plan (1) Thyromegaly: Comment: Noted on exam today. TSH within normal limits. Has a strong family history of hypothyroidism as well as other autoimmune disorders to include parathyroid adenoma and her mother. We will check a CT of the neck as she also wants to evaluate what is going on with her tonsils in her uvula. 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 While every effort has been made to ensure accuracy in splitting machine feeder, still errors may have been included Sometimes, these errors may affect the content or meaning of the given sentence . Total time spent caring for the patient today was 45 minutes. This includes time spent before the visit reviewing the chart, time spent during the visit, and time spent after the visit on documentation Return to office in July for complete physical exam Orders: Orders CT soft tissue neck wo IV con Today E01.0 - Iodine-deficiency related diffuse (endemic) goiter, K13.79 - Other lesions of oral mucosa Medications: Changed From chlorzoxazone 500 mg PO BID PRN To chlorzoxazone 500 mg PO TID 60 tabs 0RF Refilled lisinopril 10 mg PO DAILY 90 tabs 3RF Review Flu Vaccine not done: patient reason Coding Level of Care Code Est Pt Level 5 (12002) Diagnoses Thyromegaly E01.0 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
[2023-05-22 10:30] VITALS: BP 120/60
== END 2023-05-22 10:31 | disposition home or self-care (01) ==
PROVIDERS: PCP Hospitalist; Visit Provider Nurse Practitioner Family
DX: E01.0 Iodine-deficiency related diffuse (endemic) goiter (principal); K13.79 Other lesions of oral mucosa
CPT/HCPCS: 99215

== ENCOUNTER 2023-05-29 14:38 | Outpatient (REF) | payer OTHER, SELFPAY ==
--- NOTE | ~2023-05-29 | CT_ITS ---
EXAMINATION: CT SOFT TISSUE NECK WITHOUT CONTRAST CLINICAL INFORMATION: 42-year-old with lesions of oral mucosa. Evaluate tonsils, uvula and thyroid. COMPARISON: None available. TECHNIQUE: Volumetric CT imaging of the soft tissue neck was done with multiplanar reformatted reconstructions without IV contrast. Note that the study is somewhat limited without contrast material. This CT examination was performed using dose optimization techniques as appropriate, variously including the following: *Automated exposure control *Adjustment of mA and/or kV according to patient size (this includes techniques or standardized protocols for targeted exams where dose is matched to indication/reason for exam; i.e. extremities or head) *Use of iterative reconstruction technique DLP: 275 mGy-cm FINDINGS: SKULL BASE: The visualized calvarium and bony skull base appear grossly intact. The mastoids and middle ear cavities are unopacified. There is nasal septal deviation to the right and there is a subcentimeter retention cyst along the floor of the left maxillary sinus. Otherwise, the sinonasal cavity is unopacified. Limited assessment of the included intracranial soft tissue structures. Limited visualization. No gross acute process. Visualized orbital soft tissue structures appear symmetric and intact. SUPRAHYOID NECK: There is slightly asymmetric fullness of the nasopharyngeal soft tissues on the right compared to the left, which should be correlated with direct visualization. There are tiny calcified tonsilloliths in the pharyngeal tonsils bilaterally, which are otherwise bilaterally symmetric and normal in noncontrast attenuation. There is slight asymmetric fullness in the region of the left glossotonsillar sulcus, which should be correlated with direct visualization. Evaluation is limited without IV contrast. There are partially calcified stylohyoid ligaments bilaterally. The visualized home health aid and parapharyngeal spaces appear within normal limits. Dental amalgam artifact partially obscures visualization of the oral tongue. The visualized soft palate is symmetric and normal in attenuation and normal in morphology. There is some irregularity along the ventral surface of the base of the tongue posterior to the mentum of the mandible, which should be correlated with direct visualization. Remainder of the base of the tongue is symmetric and intact with a normal appearance to the floor of the mouth structures. There is some fatty atrophy of the parotid glands are bilaterally which are otherwise grossly within normal limits. The submandibular glands are normal in morphology and attenuation. There are multiple nonenlarged, nonpathologic-appearing bilateral submandibular space and submental lymph nodes. A few nonenlarged bilateral IJ chain lymph nodes are seen at level IIa and level IIb. Vallecula and epiglottis appear within normal limits. INFRAHYOID NECK: Hypopharynx, larynx and thyroid gland appear grossly unremarkable. There are multiple small, nonenlarged bilateral level IV and level IIIb lymph nodes without lymphadenopathy. UPPER CHEST: The visualized lung parenchyma demonstrates no acute process. There is probably some residual thymic tissue in the anterior mediastinal fat. SKELETAL: There is mild lordotic reversal centered at C5-C6. There is mild TMJ arthropathy on the left. Otherwise, skeletal structures appear grossly intact. OTHER COMMENTS: None. CT/CT soft tissue neck wo IV con IMPRESSION: 1. Limited study without IV contrast. 2. Slight asymmetric fullness of the nasopharyngeal soft tissues on the right compared to the left and slight asymmetric fullness in the region of the left glossotonsillar sulcus. Recommend correlation with direct visualization. Contour irregularity along the ventral surface of the base of the tongue, posterior to the mentum of the mandible. Recommend correlation with direct visualization at this location as well. Cannot exclude trapped air versus a mucosal lesion. 3. No cervical lymphadenopathy identified. 4. Mild left-sided TMJ arthropathy. 5. Mild lordotic reversal at C5-C6. 6. Probable residual thymic tissue in the anterior mediastinal fat.
== END 2023-05-29 14:39 | disposition home or self-care (01) ==
LOC: HO.CT 14:38
PROVIDERS: PCP Nurse Practitioner Family; Visit Provider Nurse Practitioner Family
DX: K13.79 Other lesions of oral mucosa (principal); E01.0 Iodine-deficiency related diffuse (endemic) goiter
CPT/HCPCS: 70490

== ENCOUNTER 2023-08-07 08:03 | Outpatient (AMB) | payer OTHER, SELFPAY ==
[2023-08-07 08:05] VITALS: BP 142/78; PULSE 69; RESP 13; TEMP 36.6; O2SAT 99; BMI 27.1
--- NOTE | 2023-08-07 08:05 | A.OFFPC_ITS ---
Vital Signs 08/07/23 08:05 08/07/23 08:57 Height 5 ft 7 in Weight 173 lb BMI 27.1 BP 142/78 H 132/76 Blood Pressure Location Rt brachial Rt brachial Position Sitting Respiration 13 Pulse 69 Pulse Source Pulse Oximeter Temp 97.8 F Temp Source Temporal Artery Scan Pulse Oximetry (%) 99 Oxygen Delivery Method Room Air Intake Visit Reasons: cpe Iap Displays Analyst Required: No Accompanied by: Self / Same As Patient Allergies sumatriptan Allergy (Severe, Verified 08/07/23 08:33) chest spasm amoxicillin [Amoxicillin] Allergy (Unknown, Verified 08/07/23 08:33) Rash doxycycline Allergy (Unknown, Verified 08/07/23 08:33) Rash penicillin V Allergy (Unknown, Verified 08/07/23 08:33) Rash Penicillins Allergy (Unknown, Verified 08/07/23 08:33) Rash Medication List - Last Reconciled 08/07/23 by Irma Palencia, [employer]- atenolol 25 mg PO DAILY 3 months baclofen 10 mg PO BID chlorzoxazone 500 mg PO BID PRN fremanezumab-vfrm (Ajovy Syringe) 225 mg (1.5 mL) subcut .monthly 30 days lisinopril 10 mg PO DAILY rimegepant (Nurtec ODT) 75 mg PO DAILY PRN 30 days Tobacco use date assessed: 08/07/23 Dental Screening Dental Screen Date: 08/07/23 Did you have a dental visit in the last 12 months?: Yes Did you have a dental problem in the last 6 months where you did not have access to dental care?: No Was dental information given to patient?: Patient has dentist HPI HPI Comments History of Present Illness Details 42-year-old female with migraines, hyper tension, torticollis, spondylosis, cervical radiculopathy, bilat varicose veins 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 Orthopedics > cleared. 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 Pap 2020 WNL Eyes - wears glasses/contacts, last exam 06/2023 Vaccines - declines flu/COVID, Tdap due we will admin today Here today for CPE: ENT follow up: She reports cyst in nasopharyngeal space - if develops cough or sore throat then seek care otherwise f/u PRN only. Dry nasal passages use saline. No further f/u from the CT scan results. Had botox last week, dose was increased. Will Fu again in an month. Has loosening of the torticollis on the Right. Labs 05/22/2023 show a normal CBC, potassium 5.2, otherwise normal CMP, total cholesterol 177, triglycerides 61, LDL 113, HDL 52, normal TSH, normal testosterone, normal serum copper skin - no issues, not active w/ Derm. Has painful varicose viens ble interested in following up with vascular for evaluation and treatment [facility] Medical History (Updated 08/07/23 @ 10:53 by Irma Palencia, [facility]) Encounter for IUD removal Cervical muscle strain Spondylosis of cervical spine without myelopathy Radiculopathy, cervical Degeneration, intervertebral disc, cervical Hypertension History of migraine Surgical History History of wisdom tooth extraction History of dilation and curettage Family History Father Hyperlipidemia Hypothyroid Mother Hypothyroid Hypertension Brother No problems noted. 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 1. Little interest or pleasure in doing things: not at all 2. Feeling down, depressed, or hopeless: not at all 3. Trouble falling or staying asleep, or sleeping too much: not at all 4. Feeling tired or having little energy: not at all 5. Poor appetite or overeating: not at all 6. Feeling bad about yourself - or that you are a failure or have let yourself or your family down: not at all 7. Trouble concentrating on things, such as reading the newspaper or watching te levision: not at all 8. Moving or speaking so slowly that other people could have noticed. Or the opposite - being so fidgety or restless that you have been moving around a lot more than usual: not at all 9. Thoughts that you would be better off or of hurting yourself in some way: not at all Total score: 0 Depression Screening Interpretation: Negative Depression Screening Done: Yes 04147 - PHQ-9 Billing: Yes Source: Developed by Drs. Griffin Esteves, Anna Lua, Miguel Jose and colleagues, with an educational alex from [employer]. Thrive Questionnaire Date Thrive assessed: 08/07/23 What is your living situation today?: I have a steady place to live Within the past 12 months, did the food you bought not last and you didn't have the money to get more?: Never true Within the past 12 months, did you worry whether your food would run out before you got money to buy more?: Never true Do you have trouble paying for medicines?: No Do you have trouble getting transportation to medical appointments?: No Do you have trouble paying your heating and electricity bill?: No Do you have trouble taking care of your child, family member or friend?: No Do you have trouble with day-to-day activities such as bathing, preparing meals, shopping, managing finances, etc.?: No Are you currently unemployed and looking for a job?: No Are you interested in more education?: No Please select the resources that you would like help with: None Currently or been in a relationship where the following occur: no concerns reported THRIVE Score: 0 AUDIT C Alcohol Use Questionnaire (AUDIT-C) 1. How often do you have a drink containing alcohol?: Never 3. How often do you have six or more drinks on one occasion?: Never Total Score: 0 Score Reviewed/Action Taken: Yes LAUREN-7 AMB Questionnaire LAUREN-7 Date LAUREN - 7 assessed: 08/07/23 Feeling nervous, anxious, or on edge: 0 = Not at all Not being able to stop or control worryin = Not at all Worrying too much about different things: 0 = Not at all Trouble relaxin = Not at all Being so restless that it is hard to sit still: 0 = Not at all Becoming easily annoyed or irritable: 0 = Not at all Feeling afraid as if something awful might happen: 0 = Not at all Total LAUREN-7 score (0-4 normal; 5-9 mild; 10-14 moderate; 15-21 severe): 0 Source: Developed by Drs. Griffin Esteves, Anna Lua, Miguel Jose and colleagues, with an educational alex from [employer]. LAUREN-7 Assessment Billing LAUREN-7 Assessment Tool: LAUREN-7 Assessment 41487 Review of Systems Const Details: Constitutional: Denies fever. Skin: Denies rash. Eye: Denies eye pain. ENMT: Denies sore throat and nasal congestion. Respiratory: Denies shortness of breath and cough. Gastrointestinal: Denies nausea, vomiting or abdominal pain. Cardiovascular: Denies chest pain and syncope. Genitourinary: Denies dysuria. Musculoskeletal: Denies back pain and extremity pain. Neurologic: Denies headaches, confusion, and weakness. Psychiatric: Denies suicidal thoughts and substance abuse. Allergy/ Immunologic: Denies impaired immunity. Physical exam (Primary Care) Vital Signs: Last Vital Signs Temp 97.8 F 08/07/23 08:05 Pulse 69 08/07/23 08:05 Resp 13 08/07/23 08:05 BP 132/76 08/07/23 08:57 Pulse Ox 99 08/07/23 08:05 Oxygen Delivery Method Room Air 08/07/23 08:05 BMI result Body Mass Index 27.1 Tobacco/Smoking Status: Tobacco use Status Tobacco use date assessed 08/07/23 08/07/23 08:19 Patient Tobacco Use Status Never used Tobacco 08/07/23 08:19 e-Cigarette/Vaping Use Never Used 08/07/23 08:19 PHQ-9: PHQ-9 Score PHQ-9: Total score 0 08/07/23 09:26 Depression Screening Interpretation: Negative Thrive Assessment: Date of Thrive Assessment Date Thrive assessed 08/07/23 08/07/23 08:19 Currently or been in a relationship where the following occur: no concerns reported Const Other: General: Well developed, well nourished, in no acute distress. Appears stated age. Head: Normocephalic, atraumatic. Eyes: Pupils are equal, round and reactive to light and accommodation. Conjunctivae are clear. Vision grossly normal. Ears: TMs clear AU, EACS WNL Nose: Patent, without discharge. Mouth: There are no ulcers or lesions noted. No inflammation, no post nasal drip, no plaques nor exudates.Uvula deviated to the right, no appreciable tonsillar enlargement Neck: Supple, no adenopathy. Thyroid palpable, nontender, no nodules appreciated, trachea midline Lungs: Clear to auscultation bilaterally. No rales, rhonchi or wheeze noted. Good air flow in all vital. Heart: Regular rate and rhythm. No murmurs, click, rubs or gallops are noted. Abdomen: Bowel sounds present in all quadrants. The abdomen is soft, nontender, with no masses or organomegaly noted. No hernias are noted. Musculoskeletal: Joints are nontender, without swelling, redness, or effusions. Range of motion is observed to be normal. Pulses: Peripheral pulses are equal and palpable bilaterally. Extremities: No clubbing, cyanosis nor edema is noted. Neurologic: Gait and station normal. Cranial Nerves 2-12 intact. Motor strength grossly symmetrical and intact. No sensory loss. Balance normal. Skin: No rashes, ulcers, or lesions noted. Turgor is good. Skin color is good. Hair and nails are without abnormalities. Psych: Normal eye contact, affect and mood appropriate, and normal interactions. Patient is alert and appropriate to context. Extremities: No clubbing, cyanosis or edema.Varicose veins bilateral lower extremities Immunizations Boostrix Tdap 2.5 Lf unit-8 mcg-5 Lf/0.5 mL intramuscular syringe Performing Provider: ADRIA Smiley Performing Location: [facility] Administered by: Lisa Pike CMA on 08/07/23 09:24 Dose Route Admin Location Dispensed Lot Number Expiration Date NDC A Operator 0.5 mL IM Right Deltoid 0.5 mL [id number] 10/23/25 [id number] [employer] VIS Given Date VIS Provided VIS Publication Date 08/07/23 Single Vaccine 20 Eligibility Eligibility Date Funding Source Not VFC Eligible 08/07/23 Private Assessment and Plan Assessment & Plan (1) Physical exam, annual: Code(s): Z00.00 - Encounter for general adult medical examination without abnormal findings (2) Varicose veins of bilateral lower extremities with pain: Comment: Check venous ultrasound and refer to vascular for further evaluation and treatment Code(s): I83.813 - Varicose veins of bilateral lower extremities with pain (3) Thyromegaly: Comment: Noted on exam, TSH within normal limits. Has a strong family history of hypothyroidism as well as other autoimmune disorders to include parathyroid adenoma and her mother. 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 Consult with ENT complete. No further follow up indicated Code(s): K13.79 - Other lesions of oral mucosa (5) Torticollis: Comment: Followed by Neurology and treated with muscle relaxers as well as Botox with positive relief Code(s): M43.6 - Torticollis (6) Migraine: Comment: Managed by Neurology. Code(s): G43.909 - Migraine, unspecified, not intractable, without status migrainosus Qualifiers: Migraine type: migraine (< 15 days per month) without aura Status migrainosus presence: without status migrainosus Intractability: not intractable Qualified Code(s): G43.009 - Migraine without aura, not intractable, without status migrainosus (7) Hypertension, essential: Comment: Goal less than 140/80, blood pressure at goal with use atenolol 25 mg daily and lisinopril 10 mg daily. Continue. Code(s): I10 - Essential (primary) hypertension Orders: Orders US venous duplex LE BI Today I83.813 - Varicose veins of bilateral lower extremities with pain TDaP Immunization Today Z23 - Encounter for immunization Medications: Refilled atenolol 25 mg PO DAILY 90 tabs 3RF 3 months I10 - Essential (primary) hypertension lisinopril 10 mg PO DAILY 90 tabs 3RF Patient Instructions: Return to office in 1 year for complete physical exam, sooner as needed. Health screenings for women You should visit your health care provider from time to time, even if you are healthy. The purpose of these visits is to: Screen for medical issues Assess your risk for future medical problems Encourage a healthy lifestyle Update vaccinations and other preventive care services Help you get to know your provider in case of an illness Information Even if you feel fine, you should still see your provider for regular checkups. These visits can help you avoid problems in the future. For example, the only way to find out if you have high blood pressure is to have it checked regularly. High blood sugar and high cholesterol levels also may not have any symptoms in the early stages. A simple blood test can check for these conditions. There are specific times when you should see your provider or receive specific health screenings. The [place] Preventive Services Task Force publishes a list of recommended screenings. Below are screening guidelines for women ages 18 to 39. BLOOD PRESSURE SCREENING Your blood pressure should be checked at least once every 3 to 5 years if: Your blood pressure is in the normal range (top number less than 120 mm Hg and bottom number less than 80 mm Hg) You don't have risk factors for high blood pressure Ask your provider if you need your blood pressure checked more often if: The top number is 120 to 129 mm Hg or the bottom number is 70 to 79 mm Hg You have diabetes, heart disease, kidney problems, are overweight, or have certain other health conditions You have a first-degree relative with high blood pressure You are Black You had high blood pressure during a If the top number is 130 mm Hg or greater or the bottom number is 80 mm Hg or greater, this is considered stage 1 hypertension. Schedule an appointment with your provider to learn how you can reduce your blood pressure. Watch for blood pressure screenings in your area. Ask your provider if you can stop in to have your blood pressure checked. BREAST CANCER SCREENING Experts do not agree about the benefits of breast self-exams in finding breast cancer or saving lives. Talk to your provider about what is best for you. A screening mammogram is not recommended for most women under age 40. Your provider may discuss and recommend mammograms, MRI scans, or ultrasounds if you have an increased risk for breast cancer, such as: A mother or sister who had breast cancer at a young age (most often starting screening earlier than the age the close relative was diagnosed) You carry a high-risk genetic marker CERVICAL CANCER SCREENING Cervical cancer screening should start at age 21 years unless your provider advises otherwise. After the first test: Women ages 21 through 29 should have a Pap test every 3 years. Exoprts do not agree on whether HPV testing is recommended for this age group. Women ages 30 through 65 should be screened with either a Pap test every 3 years or the HPV test every 5 years or both tests every 5 years (called cotesting ). Women who have been treated for precancer (cervical dysplasia) should continue to have Pap tests for 20 years after treatment or until age 65, whichever is longer. If you have had your uterus and cervix removed (total hysterectomy), and you have not been diagnosed with cervical cancer or precancer (high grade cervical neoplasia), you do not need cervical cancer screening. CHOLESTEROL SCREENING Cholesterol screening should begin at: Age 45 for women with no known risk factors for coronary heart disease Age 20 for women with known risk factors for coronary heart disease Repeat cholesterol screening should take place: Every 5 years for women with normal cholesterol levels More often if changes occur in lifestyle (including weight gain and diet) More often if you have diabetes, heart disease, kidney problems, or certain other conditions DIABETES SCREENING You should be screened for diabetes starting at age 35 and then repeated every 3 years if you have no risk factors for diabetes. Screening may need to start earlier and be repeated more often if you have other risk factors for diabetes, such as: You have a first degree relative with diabetes. You are overweight or have obesity. You have high blood pressure, prediabetes, or a history of heart disease. Screening for diabetes should be done if you are planning to become and you are overweight and have other risk factors such as high blood pressure. DENTAL EXAM Go to the dentist once or twice every year for an exam and cleaning. Your dentist will evaluate if you need more frequent visits. EYE EXAM Have an eye exam every 5 to 10 years before age 40. If you have vision problems, have an eye exam every 2 years or more often if recommended by your provider. You should have an eye exam that includes an examination of your retina (back of your eye) at least every year if you have diabetes. IMMUNIZATIONS Commonly needed vaccines include: Flu shot: get one every year. COVID-19 vaccine: ask your provider what is best for you. Tetanus-diphtheria and acellular pertussis (Tdap) vaccine: have one at or after age 19 as one of your tetanus-diphtheria vaccines if you did not receive it as an adolescent. Tetanus-diphtheria: have a booster (or Tdap) every 10 years. Varicella vaccine: receive 2 doses if you never had chickenpox or the varicella vaccine. Hepatitis B vaccine: receive 2, 3, or 4 doses, depending on your exact circumstances. Measles, mumps, and rubella (MMR) vaccine: receive 1 to 2 doses if you are not already immune to MMR. Your provider can tell you if you are immune. Ask your provider about the human papillomavirus (HPV) vaccine if: You have not received the HPV vaccine in the past You have not completed the full vaccine series (you should catch up on this shot) Ask your provider if you should receive other immunizations if you have certain health problems that increase your risk for some diseases such as pneumonia. INFECTIOUS DISEASE SCREENING Women who are sexually active should be screened for chlamydia and gonorrhea up until age 25. Women 25 years and older should be screened for chlamydia and gonorrhea if at high risk. Screening for hepatitis C: All adults ages 18 to 79 should get a one-time test for hepatitis C. people should be screened at every . Screening for human immunodeficiency virus (HIV): All people ages 15 to 65 should get a one-time test for HIV. Depending on your lifestyle and medical history, you may also need to be screened for infections such as syphilis and HIV, as well as other infections. PHYSICAL EXAM All adults should visit their provider from time to time, even if they are healthy. The purpose of these visits is to: Screen for disease Assess your risk of future medical problems Encourage a healthy lifestyle Update your vaccinations and other preventive care services Maintain a relationship with a provider in case of an illness Your height, weight, and BMI should be checked at every exam. During your exam, your provider may ask you about: Depression and anxiety Diet and exercise Alcohol and tobacco use Safety issues, such as using seat belts, smoke detectors, and intimate partner violence Your medicines and risk for interactions SKIN SELF-EXAM Your provider may check your skin for signs of skin cancer, especially if you're at high risk, such as if you: Have had skin cancer before Have close relatives with skin cancer Have a weakened immune system OTHER SCREENING Talk with your provider about colon cancer screening if you have a strong family history of colon cancer or polyps, or if you have had inflammatory bowel disease or polyps yourself. Routine bone density screening of women under 40 is not recommended. 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
[2023-08-07 08:57] VITALS: BP 132/76
== END 2023-08-07 09:23 | disposition home or self-care (01) ==
PROVIDERS: PCP Hospitalist; Visit Provider Nurse Practitioner Family
DX: Z00.00 Encounter for general adult medical examination without abnormal findings (principal); I83.813 Varicose veins of bilateral lower extremities with pain; E01.0 Iodine-deficiency related diffuse (endemic) goiter; Z23 Encounter for immunization; K13.79 Other lesions of oral mucosa; M43.6 Torticollis; G43.009 Migraine without aura, not intractable, without status migrainosus; I10 Essential (primary) hypertension
CPT/HCPCS: 90471; 90715; 99396

== ENCOUNTER 2023-08-20 08:25 | Outpatient (REF) | payer OTHER, SELFPAY ==
--- NOTE | ~2023-08-20 | US_ITS ---
EXAMINATION: US LOWER EXTREMITY VENOUS (REFLUX EXAM), BILATERAL CLINICAL INDICATION: Chronic venous insufficiency with lower extremity varicose veins and pain COMPARISON: None. TECHNIQUE: Color flow triplex imaging and compression Doppler was performed to evaluate both the deep and the superficial systems bilaterally. To evaluate the superficial system, the examination was performed in the upright position. Color-flow Doppler ultrasound and compression ultrasound were utilized. In addition, maneuvers were utilized to demonstrate reflux. FINDINGS: 1. DEEP VENOUS ULTRASOUND OF THE RIGHT LOWER EXTREMITY: Common Femoral Vein: Compressible, normal respiratory variation and augmented flow. Femoral Vein: Compressible, normal color flow and augmentation. Popliteal Vein: Compressible, normal augmentation. Deep Reflux: There is no evidence of reflux in the deep system in either the common femoral vein, superficial femoral or the popliteal vein. There is no evidence of a Tao's cyst. 2. SUPERFICIAL ULTRASOUND WITH DOPPLER OF RIGHT LOWER EXTREMITY: GREAT SAPHENOUS VEIN: Saphenofemoral Junction: 0.5 cm; Reflux: 0 ms Proximal Thigh: 0.4 cm; Reflux: 0 ms Mid Thigh: 0.3 cm; Reflux: 0 ms Above Knee: 0.4 cm; Reflux: 0 ms At Knee: 0.4 cm; Reflux: 0 ms Below Knee: Duplicated segment, both segments measure0.2 cm; Reflux: 0 ms Mid Calf: 0.2 cm; Reflux: 1812 ms Ankle: 0.2 cm; Reflux: 0 ms DUPLICATED MEDIAL GREAT SAPHENOUS VEIN: Diameter: None imaged Reflux: NA DUPLICATED LATERAL GREAT SAPHENOUS VEIN: Diameter: 0.2 cm Reflux: None SMALL SAPHENOUS VEIN: Saphenopopliteal Junction: 0.3 cm; Reflux: 0 ms Mid: 0.3 cm; Reflux: 0 ms Distal: 0.3 cm; Reflux: 0 ms VEIN OF GIACOMINI: Size: NA Reflux: NA PERFORATORS: Location: None significant Size: NA Reflux: NA VARICOSITIES: Location: None significant Size: NA Reflux: NA 3. DEEP VENOUS ULTRASOUND OF THE LEFT LOWER EXTREMITY: Common Femoral Vein: Compressible, normal respiratory variation and augmented flow. Femoral Vein: Compressible, normal color flow and augmentation. Popliteal Vein: Compressible, normal augmentation. Deep Reflux: There is no evidence of reflux in the deep system in either the common femoral vein, superficial femoral or the popliteal vein. There is no evidence of a Tao's cyst. 4. SUPERFICIAL ULTRASOUND WITH DOPPLER OF LEFT LOWER EXTREMITY: GREAT SAPHENOUS VEIN: Saphenofemoral Junction: 0.6 cm; Reflux: 0 ms Proximal Thigh: 0.5 cm; Reflux: 0 ms Mid Thigh: 0.4 cm; Reflux: 0 ms Above Knee: 0.3 cm; Reflux: 0 ms At Knee: 0.3 cm; Reflux: 0 ms Below Knee: 0.2 cm; Reflux: 0 ms Mid Calf: 0.2 cm; Reflux: 0 ms Ankle: 0.2 cm; Reflux: 0 ms DUPLICATED MEDIAL GREAT SAPHENOUS VEIN: Diameter: None imaged Reflux: NA DUPLICATED LATERAL GREAT SAPHENOUS VEIN: Diameter: 0.4 cm Reflux: 0 SMALL SAPHENOUS VEIN: Saphenopopliteal Junction: 0.3 cm; Reflux: 0 ms Mid: 0.2 cm; Reflux: 0 ms Distal: 0.3 cm; Reflux: 0 ms VEIN OF GIACOMINI: Size: NA Reflux: NA PERFORATORS: Location: None significant Size: NA Reflux: NA VARICOSITIES: Location: None significant Size: NA Reflux: NA US/US venous duplex LE BI IMPRESSION: Right: Single focal segmental area of reflux in the right great saphenous vein within the mid calf. No significant reflux is seen otherwise within the great saphenous vein or small saphenous vein Left: No significant venous insufficiency or reflux within the left great saphenous vein or small saphenous vein
== END 2023-08-20 08:26 | disposition home or self-care (01) ==
LOC: HO.US 08:25
PROVIDERS: PCP Nurse Practitioner Family; Visit Provider Nurse Practitioner Family
DX: I83.813 Varicose veins of bilateral lower extremities with pain (principal)
CPT/HCPCS: 93970

== ENCOUNTER → 2023-09-13 13:55 | Outpatient (BNVA) | payer OTHER, SELFPAY | PROVIDERS: PCP Nurse Practitioner Family; Visit Provider Surgery Vascular Surgery ==

== ENCOUNTER 2024-02-07 11:42 | Outpatient (AMB) | payer OTHER, SELFPAY ==
[2024-02-07 11:45] VITALS: BP 179/78; PULSE 73; RESP 15; O2SAT 100; BMI 27.1
--- NOTE | 2024-02-07 11:45 | A.OFFVIS_ITS ---
Vital Signs 02/07/24 11:45 Height 5 ft 7 in Weight 173 lb BMI 27.1 BP 179/78 H Blood Pressure Location Rt brachial Position Sitting Respiration 15 Pulse 73 Pulse Source Pulse Oximeter Pulse Oximetry (%) 100 Oxygen Delivery Method Room Air Intake Visit Reasons: TPI Allergies sumatriptan Allergy (Severe, Verified 02/07/24 11:50) chest spasm amoxicillin [Amoxicillin] Allergy (Unknown, Verified 02/07/24 11:50) Rash doxycycline Allergy (Unknown, Verified 02/07/24 11:50) Rash penicillin V Allergy (Unknown, Verified 02/07/24 11:50) Rash Penicillins Allergy (Unknown, Verified 02/07/24 11:50) Rash Medication List - Last Reconciled 02/07/24 by Shahla Renee LPN atenolol 25 mg PO DAILY 3 months azithromycin 500 mg PO DAILY 7 days baclofen 10 mg PO BID chlorzoxazone 500 mg PO BID PRN chlorzoxazone 500 mg PO TID lisinopril 10 mg PO DAILY rimegepant (Nurtec ODT) 75 mg PO DAILY PRN 30 days HPI HPI TPI: Details: 43-year-old female who presents to the office today for TPI. Denies any recent cough, cold, infection, fever or other significant changes in medical history since last office visit. [facility] Medical History (Updated 02/12/24 @ 11:01 by Chris Corea MD) Cervical muscle strain Encounter for IUD removal Spondylosis of cervical spine without myelopathy Radiculopathy, cervical Degeneration, intervertebral disc, cervical Hypertension History of migraine Surgical History History of wisdom tooth extraction History of dilation and curettage Family History Father Hyperlipidemia Hypothyroid Mother Hypothyroid Hypertension Brother No problems noted. 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 Alert and oriented. Mood and affect appropriate. Follows and participates in conversation appropriately. Respiratory effort is unlabored. Able to transition from sit to stand unassisted. Ambulates with bilaterally normal heel strike and toe off. Office Procedures Injection Trigger Point Multi Pre-procedure diagnosis: Myofascial pain. Post-procedure diagnosis: Myofascial pain. Site and number of trigger points: Right cervicalis Right occipitalis Right trapezius Solution: Total volume administered 10 ml (5 ml lidocaine 1% + 5 ml ropivacaine 0.25%). The procedure, its benefits, and its risks were explained to the patient and all questions were answered. Prior to the start of the procedure, a ?time out? was performed to confirm correct patient, procedure, and laterality. Trigger points were identified by manual palpation and marked. The skin was cleaned with Chloraprep. A 1.5-inch 25 G needle was used. Each of the trigger points were approximated and elevated in the direction away from the body. Dry needling then took place for five seconds. Approximately 0.5 ml to 1 ml of injectate was delivered to the trigger point followed by dry needling for five seconds. This process was repeated at each trigger point site. The patient tolerated the procedure well. Post-procedure, breath sounds were equal at both sides of the chest. The patient tolerated the procedure well, without complication. The patient denied any numbness, paresthesia, or weakness. Post-procedure vitals were recorded as part of the nursing discharge note in electronic medical record. Following a period of observation, the patient was discharged in stable condition with written discharge instructions. Trigger Point Multiple: 95491- Trigger point injection =/>3 Results Reviewed Results Reviewed: No imaging is available for review. Assessment & Plan Assessment & Plan (1) Cervical muscle strain: Code(s): S16.1XXA - Strain of muscle, fascia and tendon at neck level, initial encounter Category: Medical (2) Myofascial pain: Code(s): M79.18 - Myalgia, other site Category: Medical Plan Patient is status post TPI. Patient tolerated procedure well and was discharged home in stable condition with discharge instructions. All questions were answered. Repeat as needed. Scribed for Dr. Corea by Kush Cardoso medical historian, on 02/07/2024. I, Dr. Corea, have personally reviewed and agree with the information entered by the scribe. Coding Level of Care Code Procedure Only Diagnoses Cervical muscle strain S16.1XXA Myofascial pain M79.18 CPT Codes Details - Trigger Point Multiple: 22808- Trigger point injection =/>3 ([id number])
== END 2024-02-07 12:17 | disposition home or self-care (01) ==
LOC: HO.PMC 11:42
PROVIDERS: PCP Nurse Practitioner Family; Visit Provider Internal Medicine
DX: M79.18 Myalgia, other site (principal); S16.1XXA Strain of muscle, fascia and tendon at neck level, initial encounter
CPT/HCPCS: 20553

== ENCOUNTER → 2024-02-07 11:42 | Outpatient (BNVA) | payer OTHER, SELFPAY | PROVIDERS: PCP Nurse Practitioner Family; Visit Provider Internal Medicine | DX: M79.18 Myalgia, other site (principal); S16.1XXA Strain of muscle, fascia and tendon at neck level, initial encounter | CPT/HCPCS: 20553; J2795 ==

== ENCOUNTER 2024-03-05 16:12 | Outpatient (REF) | payer OTHER, SELFPAY ==
[2024-03-05 17:56] LABS: Free T4 (Free Thyroxine) 1.05 ng/dL (0.71-1.85); TSH reflex Free T4 1.13 uIU/mL (0.32-4.0)
[2024-03-06 17:48] LABS: Triiodothyronine T3 Free 3.7 pg/mL (2.3-4.2); Triiodothyronine T3 Total 121 ng/dL (76-181)
[2024-03-12 14:24] LABS: Triiodothyronine T3 Reverse 14 ng/dL (8-25)
== END 2024-03-05 16:13 | disposition home or self-care (01) ==
LOC: HO.LAB 16:12
PROVIDERS: PCP Nurse Practitioner Family; Visit Provider Registered Nurse Emergency
DX: E01.0 Iodine-deficiency related diffuse (endemic) goiter (principal)
CPT/HCPCS: 36415; 84439; 84443; 84480; 84481; 84482

== ENCOUNTER 2024-05-22 | Outpatient (REF) | payer OTHER, SELFPAY ==
[2024-05-22 09:02] LABS: Mean Corpuscular HGB Conc 32.4 g/dl (31.0-35.0); Mean Corpuscular Hemoglobin 26.1 pg (27.0-33.0); Mean Corpuscular Volume 80.4 fL (80.0-98.0); Mean Platelet Volume 10.5 fL (9.4-12.3); Platelet Count 236 X10*3/uL (160-400); Red Cell Distribution Width 14.2 % (11.0-16.0); White Blood Count 5.6 X10*3/uL (4.8-10.8)
[2024-05-22 10:03] LABS: Alanine Aminotransferase 24 U/L (0-31); Albumin Level 4.4 g/dL (3.5-5.0); Alkaline Phosphatase 43 U/L (39-117); Anion Gap 13 (12-20); Aspartate Amino Transferase 21 U/L (5-31); Bilirubin Total 0.6 mg/dL (0.0-1.0); Blood Urea Nitrogen 15 mg/dL (9-16); Calcium 9.5 mg/dL (8.4-10.2); Carbon Dioxide 23 mmol/L (22-29); Chloride 106 mmol/L (96-108); Cholesterol 167 mg/dL (<200); Estimated Glomerular Filt Rate > 60; Gamma Glutamyl Transpeptidase 15 U/L (7-33); Glucose Random 91 mg/dL (60-115); HDL Cholesterol 53 mg/dL (>40); Iron 30 mcg/dL (30-160); LDL Cholesterol Calculated 100 mg/dL (<100); Magnesium 2.1 mg/dL (1.6-2.6); Percent Iron Saturation 8 % (15-50); Potassium 3.9 mmol/L (3.3-5.1); Sodium 138 mmol/L (135-145); Total Iron Binding Capacity 367 mcg/dL (228-428); Total Protein 7.6 g/dL (6.5-8.0); Triglycerides 72 mg/dL (<150); Unsaturated Iron Binding 337 ug/dL
[2024-05-22 10:08] LABS: Vitamin B12 671 pg/mL (200-900)
[2024-05-22 10:15] LABS: Ferritin 6 ng/mL (10-250); Free T4 (Free Thyroxine) 0.95 ng/dL (0.71-1.85); Vitamin D 25-OH Total 44.7 ng/mL (>30)
[2024-05-22 11:30] LABS: Uric Acid 5.2 mg/dL (2.4-5.7)
[2024-05-22 11:45] LABS: Insulin 12 uU/mL (2-29)
[2024-05-24 06:04] LABS: CRP High Sensitivity 0.9 mg/L
[2024-05-24 07:34] LABS: Follicle Stimulating Hormone 5.1 mIU/mL; Triiodothyronine T3 Free 3.2 pg/mL (2.3-4.2)
[2024-05-24 09:34] LABS: DHEA Sulfate 167 mcg/dL (15-205)
[2024-05-24 23:44] LABS: Homocysteine 7.8 umol/L (<10.4)
[2024-05-25 22:04] LABS: Thyroglobulin Antibodies 1 IU/mL (< or = 1); Thyroid Peroxidase Antibodies 1 IU/mL (<9)
[2024-05-25 22:34] LABS: Zinc 69 mcg/dL (60-130)
[2024-05-27 10:32] LABS: Triiodothyronine T3 Reverse 17 ng/dL (8-25)
[2024-05-28 14:27] LABS: Copper RBC 0.76 mg/L (0.53-0.91)
[2024-05-28 16:33] LABS: Methylmalonic Acid 152 nmol/L (55-335)
[2024-05-29 06:58] LABS: Dihydrotestosterone 9 ng/dL (< OR = 20)
[2024-05-29 08:18] LABS: Estradiol Ultra Sensitive 85 pg/mL
[2024-05-30 14:54] LABS: Testosterone, Free 1.6 pg/mL (0.1-6.4); Testosterone, Total 19 ng/dL (2-45)
[2024-06-03 00:14] LABS: Progesterone 6.2 ng/mL
== END 2024-05-22 00:01 | disposition home or self-care (01) ==
LOC: HO.LAB
PROVIDERS: PCP Nurse Practitioner Family; Visit Provider Internal Medicine
DX: E03.9 Hypothyroidism, unspecified (principal); I15.1 Hypertension secondary to other renal disorders; F32.81 Premenstrual dysphoric disorder; E11.9 Type 2 diabetes mellitus without complications; E55.9 Vitamin D deficiency, unspecified; D64.9 Anemia, unspecified; E28.2 Polycystic ovarian syndrome; E78.5 Hyperlipidemia, unspecified; K76.0 Fatty (change of) liver, not elsewhere classified; R53.83 Other fatigue; N95.9 Unspecified menopausal and perimenopausal disorder
CPT/HCPCS: 36415; 80053; 80061; 82306; 82525; 82607; 82627; 82642; 82670; 82728; 82977; 83001; 83002; 83090; 83525; 83540; 83735; 83921; 83970; 84144; 84402; 84403; 84439; 84443; 84481; 84482; 84550; 84630; 85027; 86141; 86376; 86800

== ENCOUNTER 2024-08-12 08:01 | Outpatient (AMB) | payer OTHER, SELFPAY ==
--- NOTE | 2024-08-12 08:04 | A.OFFPC_ITS ---
Vital Signs 08/12/24 08:09 Height 5 ft 7 in Weight 174 lb BMI 27.2 BP 132/76 Blood Pressure Location Lt brachial Position Sitting Respiration 13 Pulse 78 Pulse Source Pulse Oximeter Temp 97.3 F Temp Source Oral Pulse Oximetry (%) 98 Oxygen Delivery Method Room Air Intake Visit Reasons: cpe Intake Note: CPE Database Report Writer Required: No Allergies sumatriptan Allergy (Severe, Verified 08/12/24 08:05) chest spasm amoxicillin [Amoxicillin] Allergy (Unknown, Verified 08/12/24 08:05) Rash penicillin V Allergy (Unknown, Verified 08/12/24 08:05) Rash Penicillins Allergy (Unknown, Verified 08/12/24 08:05) Rash Medication List - Last Reconciled 08/12/24 by TONNY Smiley- atenolol 25 mg PO DAILY 3 months baclofen 10 mg PO BID PRN chlorzoxazone 500 mg PO BID PRN cream base no.105 (bulk) (Base W301 cream) 1 appl miscellaneous QID ferrous sulfate 325 mg PO DAILY lisinopril 10 mg PO DAILY nystatin-triamcinolone 100,000-0.1 unit/g-% 1 appl topical BID ondansetron 4 mg PO Q8H PRN tizanidine 4 mg PO Q8H PRN vit B complex 100 combo no.2 ER (Balanced B-100 Complex) 1 tab PO DAILY 90 days Tobacco use date assessed: 08/12/24 Dental Screening Dental Screen Date: 08/12/24 Did you have a dental visit in the last 12 months?: Yes Did you have a dental problem in the last 6 months where you did not have access to dental care?: No Was dental information given to patient?: Patient has dentist HPI HPI Comments History of Present Illness Details 44-year-old female with migraines, hyper tension, torticollis, spondylosis, cervical radiculopathy, bilat varicose veins 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 Orthopedics > cleared. Neurology appt next Saturday for botox for migraines [facility] [employer] Specialist ENT > PRN only Vascular - had treatment of veins of [place] at [facility] [place]; will only fu PRN Health maintenance Mammogram 08/22/2022 >> will do every other year. Order placed today Pap 2020 WNL, appt this year. Will review need for Mirena Eyes - wears glasses/contacts, last exam 06/2023 Vaccines - declines flu/COVID, Tdap due we will admin today History of Present Illness - The patient is a 44-year-old female pr esenting for an annual physical examination with concerns about multiple ongoing health issues. - History of essential hypertension mario ged with atenolol and lisinopril; recent home readings elevated. - Chronic torticollis managed with muscl e relaxers. - Reports pulsatile tinnitus, R, onset t wo months ago - Increasing frequency of migraines and headaches, getting botox. Managed by Neuro. - Had consult for wt mgmt; difficulty wi th metformin due to GI side effects. - Elevated parathyroid hormone; family h istory of parathyroidectomy; recent vitamin D level normal. - Iron deficiency anemia; heavy menstrua l periods; currently on iron supplements. - History of IUD use for heavy menstrual bleeding; discontinued due to side effects concerns. - s/p vein treatment L side; FU PRN only - Skin - poison contact derm, right arm self limiting managing at home - Active lifestyle, attending fitness cl asses twice weekly; increased red meat intake for iron. 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 - Single mother of two boys; manages [employer] responsibilities and family care. - Exercises regularly, attending fitness classes twice a week. - Diet includes increased red meat for i gaudencio intake; avoids GLP-1 medications for weight management. - No tobacco or alcohol use reported. - Interest in natural supplements and ho listic approaches to health management. Health Maintenance - Discussion about weight management and exercise, with attendance at fitness classes. - Review of iron supplementation for iro n deficiency anemia. - Consideration of IUD re-implementation for menstrual control. - Mammogram and eye exam scheduled as pa rt of routine screening. Review of Systems - General: Reports feeling fatigued due to anemia. - EENT: Reports pulsatile tinnitus; vin es vision changes. - Cardiovascular: Reports elevated blood pressure at home; denies chest pain. - Respiratory: Denies shortness of breat h. - Gastrointestinal: Reports past GI upse t with metformin. - Musculoskeletal: Reports chronic neck pain due to torticollis. - Neurological: Reports increasing migra leanne and headaches; denies seizures. - Endocrine: Reports elevated parathyroi d hormone, no thyroid issues. - Hematologic: Reports heavy menstrual b leeding and anemia. - Psychiatric: Denies mood changes or de pression. Results 05/22/24 PTH ELEVATED 135, IRON DEF ANEMIA , OTHERWISE WNL Discussion Notes I discussed with the patient her ongoing concerns and management strategies for her multiple health issues. We reviewed the benefits and risks of medications, including antihypertensives and iron supplements, and discussed the potential need for an MRI to investigate pulsatile tinnitus further. We explored lifestyle modifications for weight management and the potential reintroduction of an IUD to manage menstrual bleeding. We also discussed the importance of monitoring her parathyroid hormone levels, considering her family history. I emphasized the significance of routine health maintenance, including upcoming mammogram and eye examinations. Assessment and Plan 1. Essential Hypertension - increase lisinopril from 10mg QD to 20 mg QD, cont atenolol 25mg QD, monitor home BP. 2. Chronic Torticollis - Continue muscle relaxers PRN. 3. Pulsatile Tinnitus - MRI ordered; follow-up based on result s. 4. Migraines - Continue Botox; monitor frequency. FU with Neuro 5. Elevated Parathyroid Hormone - Re-evaluate with labs and imaging. 6. Iron Deficiency Anemia - Continue iron; consider IUD for menstr ual control. 97 Metabolic Syndrome (suspected) - Lifestyle modifications; cont metformi n trial. Patient Instructions - Continue taking your blood pressure me dication as prescribed. - Monitor your blood pressure at home an d keep a log for review. - Take iron supplements daily to help wi th anemia. - Schedule and attend your MRI appointme nt as discussed. - Consider discussing the IUD option wit h your agency trainer for menstrual control. - Attend your fitness classes and mainta in a healthy diet. - Follow up with any specialists as need ed based on testing results. - RTO 1 year CPE sooner PRN Consent. Patient was informed and verbally consented to the use of an ambient scribe for clinic note documentation during this visit. An additional 30 minutes was spent addressing the problem(s) noted at todays visit. This includes time spent before the visit reviewing the chart, time spent during the visit, and time spent after the visit on documentation reviewing laboratory results, diagnostic imaging, medications, performing a medically necessary evaluation, counseling on diagnoses, care coordination, ordering appr opriate tests, ordering appropriate medications, review of tests performed by other providers, reporting test results with the patient, communication with other healthcare providers. [facility] Medical History (Updated 08/12/24 @ 08:53 by Irma Palencia [facility]) Cervical muscle strain Degeneration, intervertebral disc, cervical Encounter for IUD removal History of migraine Hypertension Radiculopathy, cervical Spondylosis of cervical spine without myelopathy Surgical History History of dilation and curettage History of wisdom tooth extraction Family History Father Hyperlipidemia Hypothyroid Mother Hypothyroid Hypertension Brother No problems noted. 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 1. Little interest or pleasure in doing things: not at all 2. Feeling down, depressed, or hopeless: not at all 3. Trouble falling or staying asleep, or sleeping too much: not at all 4. Feeling tired or having little energy: not at all 5. Poor appetite or overeating: not at all 6. Feeling bad about yourself - or that you are a failure or have let yourself or your family down: not at all 7. Trouble concentrating on things, such as reading the newspaper or watching television: not at all 8. Moving or speaking so slowly that other people could have noticed. Or the opposite - being so fidgety or restless that you have been moving around a lot more than usual: not at all 9. Thoughts that you would be better off or of hurting yourself in some way: not at all Total score: 0 Depression Screening Interpretation: Negative Depression Screening Done: Yes 96671 - PHQ-9 Billing: Yes Source: Developed by Drs. Griffin Esteves, Anna Lua, Miguel Jose and colleagues, with an educational alex from [employer]. Thrive Questionnaire Date Thrive assessed: 08/12/24 I am a: Patient What is your living situation today?: I have a steady place to live Within the past 12 months, did the food you bought not last and you didn't have the money to get more?: Never true Within the past 12 months, did you worry whether your food would run out before you got money to buy more?: Never true Do you have trouble paying for medicines?: No Do you have trouble getting transportation to medical appointments?: No Do you have trouble paying your heating and electricity bill?: No Do you have trouble taking care of your child, family member or friend?: No Do you have trouble with day-to-day activities such as bathing, preparing meals, shopping, managing finances, etc.?: No Are you currently unemployed and looking for a job?: No Are you interested in more education?: No Please select the resources that you would like help with: None Currently or been in a relationship where the following occur: No concerns reported THRIVE Score: 0 AUDIT C Alcohol Use Questionnaire (AUDIT-C) 1. How often do you have a drink containing alcohol?: Never 3. How often do you have six or more drinks on one occasion?: Never Total Score: 0 Score Reviewed/Action Taken: Yes LAUREN-7 AMB Questionnaire LAUREN-7 Date LAUREN - 7 assessed: 08/12/24 Feeling nervous, anxious, or on edge: 0 = Not at all Not being able to stop or control worryin = Not at all Worrying too much about different things: 0 = Not at all Trouble relaxin = Not at all Being so restless that it is hard to sit still: 0 = Not at all Becoming easily annoyed or irritable: 0 = Not at all Feeling afraid as if something awful might happen: 0 = Not at all Total LAUREN-7 score (0-4 normal; 5-9 mild; 10-14 moderate; 15-21 severe): 0 Source: Developed by Anna Kumar, Miguel Jose and colleagues, with an educational alex from [employer]. LUAREN-7 Assessment Billing LAUREN-7 Assessment Tool: LAUREN-7 Assessment 83668 Physical exam (Primary Care) Tobacco/Smoking Status: Tobacco use Status Tobacco use date assessed 08/07/23 08/07/23 08:19 Patient Tobacco Use Status Never used Tobacco 08/07/23 08:19 e-Cigarette/Vaping Use Never Used 08/07/23 08:19 Depression Screening Interpretation: Negative Thrive Assessment: Date of Thrive Assessment Date Thrive assessed 08/11/24 08/10/24 22:01 Currently or been in a relationship where the following occur: No concerns reported Const Other: General: Well developed, well nourished, in no acute distress. Appears stated age. Head: Normocephalic, atraumatic. Eyes: Pupils are equal, round and reactive to light and accommodation. Conj unctivae are clear. Vision grossly normal. Ears: TMs clear AU, EACS WNL Nose: Patent, without discharge. Mouth: There are no ulcers or lesions noted. No inflammation, no post nasal drip, no plaques nor exudates.Uvula deviated to the right, no appreciable tonsillar enlargement Neck: Supple, no adenopathy. Thyroid palpable, nontender, no nodules appreciated, trachea midline Lungs: Clear to auscultation bilaterally. No rales, rhonchi or wheeze noted. Good air flow in all vital. Heart: Regular rate and rhythm. No murmurs, click, rubs or gallops are noted. Abdomen: Bowel sounds present in all quadrants. The abdomen is soft, nontender, with no masses or organomegaly noted. No hernias are noted. Musculoskeletal: Joints are nontender, without swelling, redness, or effusions. Range of motion is observed to be normal. Pulses: Peripheral pulses are equal and palpable bilaterally. Extremities: No clubbing, cyanosis nor edema is noted. Neurologic: Gait and station normal. Cranial Nerves 2-12 intact. Motor strength grossly symmetrical and intact. No sensory loss. Balance normal. Skin: No rashes, ulcers, or lesions noted. Turgor is good. Skin color is good. Hair and nails are without abnormalities. contact derm right arm and right low back Psych: Normal eye contact, affect and mood appropriate, and normal interactions. Patient is alert and appropriate to context. Extremities: No clubbing, cyanosis or edema.Varicose veins bilateral lower extremities Coding Level of Care Code Est Pt Level 4 (39683) Est Pt Prev Care 40-64y(16297) Diagnoses Encounter for general adult medical examination without abnormal findings Z00.00 Hypertension, essential I10 Migraine without aura and without status migrainosus, not intractable G43.009 Migraine type: migraine (< 15 days per month) without aura Status migrainosus presence: without status migrainosus Intractability: not intractable Varicose veins of bilateral lower extremities with pain I83.813 Iron deficiency anemia due to chronic blood loss D50.0 Iron deficiency anemia type: chronic blood loss Elevated parathyroid hormone R79.89 Pulsatile tinnitus of right ear H93.A1 Additional Codes LAUREN-7 Assessment Billing - LAUREN-7 Assessment Tool: LAUREN-7 Assessment 09970 ([id number]) PHQ-9 - 91521 - PHQ-9 Billing: Yes ([id number]) Assessment & Plan Assessment & Plan (1) Encounter for general adult medical examination without abnormal findings: Onset Date: ~07/2024 Code(s): Z00.00 - Encounter for general adult medical examination without abnormal findings Category: Medical (2) Hypertension, essential: Comment: Goal less than 140/80, blood pressure at goal with use atenolol 25 mg daily increase lisinopril from 10 mg to 20mg daily. . Code(s): I10 - Essential (primary) hypertension Category: Medical (3) Migraine: Comment: Managed by Neurology. Code(s): G43.909 - Migraine, unspecified, not intractable, without status migrainosus Category: Medical Qualifiers: Migraine type: migraine (< 15 days per month) without aura Status migrainosus presence: without status migrainosus Intractability: not intractable Qualified Code(s): G43.009 - Migraine without aura, not intractable, without status migrainosus (4) Varicose veins of bilateral lower extremities with pain: Comment: s/p treatment Left leg FU prn only Code(s): I83.813 - Varicose veins of bilateral lower extremities with pain Category: Medical (5) Iron deficiency anemia: Code(s): D50.9 - Iron deficiency anemia, unspecified Category: Medical Qualifiers: Iron deficiency anemia type: chronic blood loss Qualified Code(s): D50.0 - Iron deficiency anemia secondary to blood loss (chronic) (6) Elevated parathyroid hormone: Code(s): R79.89 - Other specified abnormal findings of blood chemistry Category: Medical (7) Pulsatile tinnitus of right ear: Code(s): H93.A1 - Pulsatile tinnitus, right ear Category: Medical Plan . Orders: Orders Vitamin D 25-OH Total Today R789 - Other specified abnormal findings of blood chemistry MR head/brain wo/w con Today G43.009 - Migraine without aura, not intractable, without status migrainosus, H93.A1 - Pulsatile tinnitus, right ear NM parathyroid Today R7 - Other specified abnormal findings of blood c hemistry Parathyroid Hormone Intact Today R79. - Other specified abnormal findings of blood chemistry MM tomosynthesis screening BI Today Z12.31 - Encounter for screening mammogram for malignant neoplasm of breast Medications: New metformin 500 mg PO DAILY 90 tabs 2RF Changed From lisinopril 10 mg PO DAILY 90 tabs 1RF To lisinopril 20 mg (2 x 10 mg) PO DAILY 180 tabs 2RF Refilled atenolol 25 mg PO DAILY 3 months 90 tabs 3RF I10 - Essential (primary) hypertension Patient Instructions: Health screenings for women You should visit your health care provider from time to time, even if you are healthy. The purpose of these visits is to: Screen for medical issues Assess your risk for future medical problems Encourage a healthy lifestyle Update vaccinations and other preventive care services Help you get to know your provider in case of an illness Information Even if you feel fine, you should still see your provider for regular checkups. These visits can help you avoid problems in the future. For example, the only way to find out if you have high blood pressure is to have it checked regularly. High blood sugar and high cholesterol levels also may not have any symptoms in the early stages. A simple blood test can check for these conditions. There are specific times when you should see your provider or receive specific health screenings. The [place] Preventive Services Task Force publishes a list of recommended screenings. Below are screening guidelines for women ages 18 to 39. BLOOD PRESSURE SCREENING Your blood pressure should be checked at least once every 3 to 5 years if: Your blood pressure is in the normal range (top number less than 120 mm Hg and bottom number less than 80 mm Hg) You don't have risk factors for high blood pressure Ask your provider if you need your blood pressure checked more often if: The top number is 120 to 129 mm Hg or the bottom number is 70 to 79 mm Hg You have diabetes, heart disease, kidney problems, are overweight, or have certain other health conditions You have a first-degree relative with high blood pressure You are Black You had high blood pressure during a If the top number is 130 mm Hg or greater or the bottom number is 80 mm Hg or greater, this is considered stage 1 hypertension. Schedule an appointment with your provider to learn how you can reduce your blood pressure. Watch for blood pressure screenings in your area. Ask your provider if you can stop in to have your blood pressure checked. BREAST CANCER SCREENING Experts do not agree about the benefits of breast self-exams in finding breast cancer or saving lives. Talk to your provider about what is best for you. A screening mammogram is not recommended for most women under age 40. Your provider may discuss and recommend mammograms, MRI scans, or ultrasounds if you have an increased risk for breast cancer, such as: A mother or sister who had breast cancer at a young age (most often starting screening earlier than the age the close relative was diagnosed) You carry a high-risk genetic marker CERVICAL CANCER SCREENING Cervical cancer screening should start at age 21 years unless your provider advises otherwise. After the first test: Women ages 21 through 29 should have a Pap test every 3 years. Exoprts do not agree on whether HPV testing is recommended for this age group. Women ages 30 through 65 should be screened with either a Pap test every 3 years or the HPV test every 5 years or both tests every 5 years (called cotesting ). Women who have been treated for precancer (cervical dysplasia) should continue to have Pap tests for 20 years after treatment or until age 65, whichever is longer. If you have had your uterus and cervix removed (total hysterectomy), and you have not been diagnosed with cervical cancer or precancer (high grade cervical neoplasia), you do not need cervical cancer screening. CHOLESTEROL SCREENING Cholesterol screening should begin at: Age 45 for women with no known risk factors for coronary heart disease Age 20 for women with known risk factors for coronary heart disease Repeat cholesterol screening should take place: Every 5 years for women with normal cholesterol levels More often if changes occur in lifestyle (including weight gain and diet) More often if you have diabetes, heart disease, kidney problems, or certain other conditions DIABETES SCREENING You should be screened for diabetes starting at age 35 and then repeated every 3 years if you have no risk factors for diabetes. Screening may need to start earlier and be repeated more often if you have other risk factors for diabetes, such as: You have a first degree relative with diabetes. You are overweight or have obesity. You have high blood pressure, prediabetes, or a history of heart disease. Screening for diabetes should be done if you are planning to become and you are overweight and have other risk factors such as high blood pressure. DENTAL EXAM Go to the dentist once or twice every year for an exam and cleaning. Your dentist will evaluate if you need more frequent visits. EYE EXAM Have an eye exam every 5 to 10 years before age 40. If you have vision problems, have an eye exam every 2 years or more often if recommended by your provider. You should have an eye exam that includes an examination of your retina (back of your eye) at least every year if you have diabetes. IMMUNIZATIONS Commonly needed vaccines include: Flu shot: get one every year. COVID-19 vaccine: ask your provider what is best for you. Tetanus-diphtheria and acellular pertussis (Tdap) vaccine: have one at or after age 19 as one of your tetanus-diphtheria vaccines if you did not receive it as an adolescent. Tetanus-diphtheria: have a booster (or Tdap) every 10 years. Varicella vaccine: receive 2 doses if you never had chickenpox or the varicella vaccine. Hepatitis B vaccine: receive 2, 3, or 4 doses, depending on your exact circumstances. Measles, mumps, and rubella (MMR) vaccine: receive 1 to 2 doses if you are not already immune to MMR. Your provider can tell you if you are immune. Ask your provider about the human papillomavirus (HPV) vaccine if: You have not received the HPV vaccine in the past You have not completed the full vaccine series (you should catch up on this shot) Ask your provider if you should receive other immunizations if you have certain health problems that increase your risk for some diseases such as pneumonia. INFECTIOUS DISEASE SCREENING Women who are sexually active should be screened for chlamydia and gonorrhea up until age 25. Women 25 years and older should be screened for chlamydia and gonorrhea if at high risk. Screening for hepatitis C: All adults ages 18 to 79 should get a one-time test for hepatitis C. people should be screened at every . Screening for human immunodeficiency virus (HIV): All people ages 15 to 65 should get a one-time test for HIV. Depending on your lifestyle and medical history, you may also need to be screened for infections such as syphilis and HIV, as well as other infections. PHYSICAL EXAM All adults should visit their provider from time to time, even if they are healthy. The purpose of these visits is to: Screen for disease Assess your risk of future medical problems Encourage a healthy lifestyle Update your vaccinations and other preventive care services Maintain a relationship with a provider in case of an illness Your height, weight, and BMI should be checked at every exam. During your exam, your provider may ask you about: Depression and anxiety Diet and exercise Alcohol and tobacco use Safety issues, such as using seat belts, smoke detectors, and intimate partner violence Your medicines and risk for interactions SKIN SELF-EXAM Your provider may check your skin for signs of skin cancer, especially if you're at high risk, such as if you: Have had skin cancer before Have close relatives with skin cancer Have a weakened immune system OTHER SCREENING Talk with your provider about colon cancer screening if you have a strong family history of colon cancer or polyps, or if you have had inflammatory bowel disease or polyps yourself. Routine bone density screening of women under 40 is not recommended.
[2024-08-12 08:09] VITALS: BP 132/76; PULSE 78; RESP 13; TEMP 36.3; O2SAT 98; BMI 27.2
== END 2024-08-12 08:44 | disposition home or self-care (01) ==
LOC: HO.HMCFM 08:02
PROVIDERS: PCP Nurse Practitioner Family; Visit Provider Nurse Practitioner Family
DX: Z00.00 Encounter for general adult medical examination without abnormal findings (principal); I10 Essential (primary) hypertension; G43.009 Migraine without aura, not intractable, without status migrainosus; I83.813 Varicose veins of bilateral lower extremities with pain; D50.0 Iron deficiency anemia secondary to blood loss (chronic); R79.89 Other specified abnormal findings of blood chemistry; H93.A1 Pulsatile tinnitus, right ear

== ENCOUNTER → 2024-08-12 08:01 | Outpatient (BNVA) | payer OTHER, SELFPAY | PROVIDERS: PCP Nurse Practitioner Family; Visit Provider Nurse Practitioner Family | DX: Z00.00 Encounter for general adult medical examination without abnormal findings (principal); I10 Essential (primary) hypertension; M43.6 Torticollis; D50.9 Iron deficiency anemia, unspecified; G43.009 Migraine without aura, not intractable, without status migrainosus; I83.813 Varicose veins of bilateral lower extremities with pain; D50.0 Iron deficiency anemia secondary to blood loss (chronic); R79.89 Other specified abnormal findings of blood chemistry; H93.A1 Pulsatile tinnitus, right ear | CPT/HCPCS: 96127 ==

== ENCOUNTER 2024-08-12 09:29 | Outpatient (REF) | payer OTHER, SELFPAY ==
[2024-08-12 12:12] LABS: Vitamin D 25-OH Total 119.5 ng/mL (>30)
[2024-08-12 14:46] LABS: Parathyroid Hormone Intact 106.8 pg/mL (8.7-77.1)
== END 2024-08-12 09:30 | disposition home or self-care (01) ==
LOC: HO.WFDLDS 09:29
PROVIDERS: Visit Provider Nurse Practitioner Family
DX: R79.89 Other specified abnormal findings of blood chemistry (principal)
CPT/HCPCS: 36415; 82306; 83970

== ENCOUNTER → 2024-08-21 10:20 | Outpatient (BNV) | payer OTHER, SELFPAY | PROVIDERS: PCP Nurse Practitioner Family; Visit Provider Radiology Diagnostic Radiology | DX: H93.A1 Pulsatile tinnitus, right ear (principal) | CPT/HCPCS: 70553 ==

== ENCOUNTER 2024-08-21 10:22 | Outpatient (REF) | payer OTHER, SELFPAY ==
--- NOTE | ~2024-08-21 | MR_ITS ---
EXAMINATION: MR BRAIN/IACS WITHOUT AND WITH CONTRAST CLINICAL INFORMATION: Pulsatile tinnitus right ear, worsening migraines. COMPARISON: None available. TECHNIQUE: Multiplanar, multisequence MRI of the brain and IACs was obtained before and after the intravenous administration of 8 mL Gadavist. Standard sequences for IAC protocol were utilized. Exam performed on a high-field 1.5 Sirisha Siemens unit. FINDINGS: IACs: There is normal CSF signal within the IACs, CP angle cisterns, and labyrinthine structures. The 7th and 8th nerves are normal in course and caliber bilaterally. No abnormal enhancement within the IACs, petrous temporal bones, or posterior fossa structures identified. No abnormal cranial nerve enhancement. Meckel's caves have normal signal bilaterally. The 5th nerves are normal in course and caliber. The 6th nerves, 4th nerves, and 3rd cranial nerves have normal course and caliber. Incidentally noted is a dominant right sided venous drainage system. There is a dominant and high riding right jugular bulb. The major cortical and dural venous sinuses appear patent and enhance normally. The mastoids and tympanic cavities are normally aerated. IMAGED BRAIN: There is no diffusion restriction. There is no intracranial hemorrhage, acute infarction, mass effect, or edema. Ventricles, sulci, and cisterns are normal in size and configuration for patient age. No shift of midline. There are no significant white matter abnormalities on the FLAIR sequence. No abnormal intra or extra-axial enhancement after the administration of contrast. Midline structures appear normally formed. The pituitary gland appears normal. Posterior fossa structures appear normal. Cerebellar tonsils are appropriately located. Major flow voids are preserved within the skull base. The globes and orbital contents demonstrate no abnormalities. Paranasal sinuses are clear bilaterally. Nasal septum is midline without spur. Extracranial soft tissues demonstrate no abnormalities. No suspicious bone marrow changes are evident. Moderate degenerative changes in the left TM joint. Atlantoaxial joint is normal. MR/MR head/brain wo/w con IMPRESSION: 1. Normal imaging of the IAC's without enhancing mass or other abnormality. 2. There is a dominant right-sided venous drainage system with a dominant high riding right jugular bulb. This may explain right pulsatile tinnitus. If further investigation is deemed warranted, temporal bone CT is recommended. 3. There is no evidence of acute infarction, intracranial hemorrhage, mass effect, or edema. No abnormal intra or extra-axial contrast enhancement. 4. Ancillary findings as discussed in the body of the report. Electronically signed by: Franko Mayorga MD 08/21/2024 12:10 PM EDT
[2024-08-21] MEDS: gadobutroL 10 ML VIAL IVPUSH (11:02)
== END 2024-08-21 10:23 | disposition home or self-care (01) ==
LOC: HO.MRI 10:22
PROVIDERS: PCP Nurse Practitioner Family; Visit Provider Nurse Practitioner Family
DX: G43.009 Migraine without aura, not intractable, without status migrainosus (principal); H93.A1 Pulsatile tinnitus, right ear
CPT/HCPCS: 70553; A9585

== ENCOUNTER 2024-09-05 16:08 | Outpatient (REF) | payer OTHER, SELFPAY ==
--- NOTE | ~2024-09-05 | MR_ITS ---
EXAMINATION: MR VENOGRAPHY BRAIN WITH/WITHOUT CONTRAST CLINICAL INFORMATION: Pulsatile tinnitus right ear. COMPARISON: Correlation made with MRA and MR brain 08/21/2024. TECHNIQUE: 2-D ebfn-dl-[id number] and postcontrast imaging was obtained of the major cortical and dural venous sinuses both before and after the administration of 10 mL IV Gadavist. FINDINGS: There is normal flow related enhancement in postcontrast enhancement of the major cortical and dural venous sinuses. There is no evidence of dural venous thrombosis. Diminutive appearing left transverse sinus. There is a dominant right-sided drainage system with a high riding right jugular bulb. MR/MR venography head wo/w con IMPRESSION: 1. Major cortical and dural venous sinuses are patent. 2. Dominant right sided venous drainage system, with a high riding right jugular bulb. Electronically signed by: Franko Mayorga MD 09/07/2024 11:23 AM EDT
[2024-09-05] MEDS: gadobutroL 10 ML VIAL IVPUSH (16:54)
== END 2024-09-05 16:09 | disposition home or self-care (01) ==
LOC: HO.MRI 16:08
PROVIDERS: PCP Nurse Practitioner Family; Visit Provider Internal Medicine
DX: H93.A1 Pulsatile tinnitus, right ear (principal)
CPT/HCPCS: 70546; A9585

== ENCOUNTER → 2024-09-05 16:14 | Outpatient (BNV) | payer OTHER, SELFPAY | PROVIDERS: PCP Nurse Practitioner Family; Visit Provider Radiology Diagnostic Radiology | DX: J34.89 Other specified disorders of nose and nasal sinuses (principal); H83.8X1 Other specified diseases of right inner ear | CPT/HCPCS: 70546 ==

== ENCOUNTER 2024-09-14 14:54 | Outpatient (REF) | payer OTHER, SELFPAY ==
--- NOTE | ~2024-09-14 | US_ITS ---
EXAMINATION: US TRIPLEX UPPER EXTREMITY, BILATERAL CLINICAL INFORMATION: Pulsatile tinnitus, right ear COMPARISON: None available. TECHNIQUE: Color-flow triplex imaging with spectral analysis and Doppler of internal jugular veins of the neck. Imaging performed with the head in the neutral and rotated right and left. FINDINGS: The bilateral internal jugular are patent and free of thrombus. With head rotated right, there was mild extrinsic compression of the right internal jugular vein. No other asymmetry was noted. US/US venous duplex UE BI IMPRESSION: With the head rotated to the right, there is mild extrinsic compression of the right internal jugular vein of uncertain significance. Electronically signed by: Viktor Tillman MD 09/14/2024 03:39 PM EDT
== END 2024-09-14 14:55 | disposition home or self-care (01) ==
LOC: HO.US 14:54
PROVIDERS: PCP Nurse Practitioner Family; Visit Provider Nurse Practitioner Family
DX: H93.A1 Pulsatile tinnitus, right ear (principal); M43.6 Torticollis; I10 Essential (primary) hypertension; R93.1 Abnormal findings on diagnostic imaging of heart and coronary circulation; G45.8 Other transient cerebral ischemic attacks and related syndromes
CPT/HCPCS: 93970

== ENCOUNTER → 2024-09-14 14:58 | Outpatient (BNV) | payer OTHER, SELFPAY | PROVIDERS: PCP Nurse Practitioner Family; Visit Provider Radiology Diagnostic Radiology | DX: H93.A1 Pulsatile tinnitus, right ear (principal) | CPT/HCPCS: 93970 ==

== ENCOUNTER 2024-09-29 | Outpatient (REF) | payer OTHER, SELFPAY ==
--- NOTE | 2024-09-29 | EMG_ITS ---
Botulinum toxin injection under EMG guidance:? Consent:?After informed consent was obtained explaining risks, benefits, side-effects and alternatives, under aseptic precautions, the following areas were prepped and injected according to the following protocol.? Prep:?Botulinum Toxin was reconstituted in the usual manner with preservative-free normal saline.? Muscles & Units Injected:?150 units botox injected in 4 sites in left SCM ( 4x40),? 150 units in right splenius capitis ( x2) , semispinalis capitis ( x1), cervical paraspinal (X1) and trapezius bilaterally( x2) total 6 sites x 25 units.?( Total 300 units) Post-Procedure:?The patient tolerated the procedure well. There was no blood loss or adverse effect. The patient will make a follow-up appointment in 3-4 weeks.? JAID
== END 2024-09-29 00:01 | disposition home or self-care (01) ==
LOC: HO.NEURO
PROVIDERS: PCP Nurse Practitioner Family; Visit Provider Psychiatry & Neurology Neurology
DX: M43.6 Torticollis (principal)
CPT/HCPCS: 64616; 95874; 95885

== ENCOUNTER 2024-09-29 09:35 | Outpatient (AMB) | payer OTHER, SELFPAY ==
--- NOTE | 2024-09-29 09:29 | MHC.OFFVIS ---
Intake Visit Reasons: Botox 100 Units Torticollis Allergies sumatriptan Allergy (Severe, Verified 08/12/24 08:05) chest spasm amoxicillin (Amoxicillin) Allergy (Unknown, Verified 08/12/24 08:05) Rash doxycycline Allergy (Unknown, Verified 09/25/24 12:24) Unknown penicillin V Allergy (Unknown, Verified 08/12/24 08:05) Rash Penicillins Allergy (Unknown, Verified 08/12/24 08:05) Rash HPI Comments Details: She is here for Botox for torticollis. She had a good response to the last Botox.??Using more Nurtec qod which reduces her migraines to 5/ month instaed of 15. Gets bad migraines in her week of periods. Has started Baclofen, helping some. She has pulling of her head to the right and tightening in the right periscapular area, discomfort in the right suboccipital region. She has noticed stiffness in her neck since April 2020 and after a long drive in November she started noticing that her head was turning to the right. She corrects it by putting pressure in the muscles in the right upper neck area and feels that it puts a strain on her to keep her head straight. She has also been treated for migraines with aura with Dr. Jarrell and is currently taking atenolol 25 mg a day as migraine prophylaxis and using Excedrin magnesium and B6 for abortive therapy. She is currently having more than 15 days a month of migraine. Migraines are worse the week before her period is due. Triggers include cheese. The migraines may be associated with a visual aura. When the bed she gets photophobia and nausea. Procedure note: Botulinum toxin injection under EMG guidance:? Consent:?After informed consent was obtained explaining risks, benefits, side-effects and alternatives, under aseptic precautions, the following areas were prepped and injected according to the following protocol.? Prep:?Botulinum Toxin was reconstituted in the usual manner with preservative-free normal saline.? Muscles & Units Injected:?150 units botox injected in 4 sites in left SCM ( 4x40),? 150 units in right splenius capitis ( x2) , semispinalis capitis ( x1), cervical paraspinal (X1) and trapezius bilaterally( x2) total 6 sites x 25 units.?( Total 300 units) Post-Procedure:?The patient tolerated the procedure well. There was no blood loss or adverse effect. The patient will make a follow-up appointment in 3-4 weeks.? FORMERLY [facility], [facility]–1983 Medical History (Updated 09/29/24 @ 09:57 by Lynn Posadas MD) Migraine with aura Cervical muscle strain Encounter for IUD removal Spondylosis of cervical spine without myelopathy Radiculopathy, cervical Degeneration, intervertebral disc, cervical Hypertension History of migraine Surgical History History of wisdom tooth extraction History of dilation and curettage Family History (Updated 09/25/24 @ 12:25 by Jeramie Bernabe MA) Father Hyperlipidemia Hypothyroid Mother Hypothyroid Hypertension Brother No problems noted. 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 Fundoscopy shows normal disc bilaterally. External occular muscles are intact. Visual vital are full, no ptosis. Face is symmetrical, no facial weakness or droop. Facial sensations are normal. Tongue protrudes in midline. Palate elevates symmetrically. Shoulder shrugging is normal..?Motor Examination:??Normal muscle tone, bulk and strength,?No atrophy or fasciculations,?No drift of the extended upper extremities,?Deep tendon reflexes are 2+?,?Plantars are flexor?.?Straight Leg Raising:??90 degrees.?Sensory Exam:??Normal light touch, temperature, pinprick, vibration and joint-position sensations?,?Rhomberg sign is absent.?Coordination:??no ataxia,?no titubation,?bcrfep-nm-eowc, bbca-zdba-ufwn test and rapid alternating movements were normal.?Gait Exam:??Within normal limits.?Cerebellar Signs:??Ntejhb-fj-rqal and twjb-aw-bsfl is normal,?no dysdiadochokinesia?.?Extrapyramidal System:??No tremor, rigidity with normal facial expressions,?No bradykinesia, no bradyphrenia. Normal arm swing and posture. No propulsion or retropulsion.?Speech:??Normal,?no dysphasia or dysarthria..? Mini Mental Status Exam: Level of Consciousness:??Alert.?Orientation:??Knows correct year, month, date, day and season,?Knows correct city, county and state. Knows correct location and floor.?Registration:??Able to register 3 objects.?Attention:??Serial 7's performed accurately.?Recall:??Able to recall 3 out of 3 objects.?Language:??Normal spontaneous speech, fluency, repetition,naming, comprehension, reading and writing.?Total Score:??30/30.? Assessment & Plan Assessment & Plan (1) Migraine: Comment: Managed by Neurology. Code(s): G43.909 - Migraine, unspecified, not intractable, without status migrainosus Category: Medical Qualifiers: Migraine type: migraine (< 15 days per month) without aura Status migrainosus presence: without status migrainosus Intractability: not intractable Qualified Code(s): G43.009 - Migraine without aura, not intractable, without status migrainosus (2) Torticollis, acquired: Code(s): M43.6 - Torticollis Category: Medical (3) Myofascial pain: Code(s): M79.18 - Myalgia, other site Category: Medical Plan 3 monthly BOTOX inj under EMG guidance was done as per procedure document above in HPI Coding Level of Care Code Est Pt Level 1 (89411) Diagnoses Migraine without aura and without status migrainosus, not intractable G43.009 Migraine type: migraine (< 15 days per month) without aura Status migrainosus presence: without status migrainosus Intractability: not intractable Torticollis, acquired M43.6 Myofascial pain M79.18
== END 2024-09-29 09:54 | disposition home or self-care (01) ==
LOC: HO.HSM 09:35
PROVIDERS: PCP Nurse Practitioner Family; Visit Provider Psychiatry & Neurology Neurology
DX: G43.009 Migraine without aura, not intractable, without status migrainosus (principal); M43.6 Torticollis; M79.18 Myalgia, other site
CPT/HCPCS: 99499

== ENCOUNTER → 2024-09-30 11:11 | Outpatient (REF) | payer OTHER, SELFPAY ==
--- NOTE | ~2024-09-30 | NM_ITS ---
EXAMINATION: NV PARATHYROID SPECT AND CT HISTORY: R79.89 - Other specified abnormal findings of blood chemistry. TECHNIQUE: A parathyroid imaging study was performed following the intravenous administration of 30 mCi technetium 99m-sestamibi. Images were obtained 20 minutes and 2 hours after injection of the radiopharmaceutical. SPECT/CT imaging was also performed from the angle of the mandible through the franki at 2 hours. COMPARISON: Correlation is made with a CT of the neck without contrast dated 05/29/2023. FINDINGS: Early planar images demonstrate activity in the salivary glands and both thyroid lobes. Delayed images demonstrate washout from the thyroid gland. No foci retained activity are seen to suggest a parathyroid adenoma. This is confirmed on SPECT imaging. NM/NV parathyroid SPECT w CT IMPRESSION: No scintigraphic evidence of a parathyroid adenoma. Electronically signed by: Griffin Herndon MD 09/30/2024 03:09 PM EDT
== END ==
LOC: HO.NUCMED 11:11
PROVIDERS: PCP Nurse Practitioner Family; Visit Provider Nurse Practitioner Family
DX: R79.89 Other specified abnormal findings of blood chemistry (principal)
CPT/HCPCS: 78072; A9500

== ENCOUNTER → 2024-09-30 11:13 | Outpatient (BNV) | payer OTHER, SELFPAY | PROVIDERS: PCP Nurse Practitioner Family; Visit Provider Radiology Diagnostic Radiology | DX: R94.6 Abnormal results of thyroid function studies (principal) | CPT/HCPCS: 78072 ==

== ENCOUNTER 2024-11-07 11:32 | Emergency (ER) | payer OTHER, SELFPAY ==
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
[2024-11-07 11:34] VITALS: BP 160/65; PULSE 80; RESP 18; TEMP 37.1; O2SAT 97; BMI 28.7
[2024-11-07 11:35] VITALS: BP 160/98; PULSE 81; O2SAT 96
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
[2024-11-07 12:38] VITALS: BP 140/78; PULSE 70; RESP 16; TEMP 36.9; O2SAT 98
--- NOTE | 2024-11-07 13:00 | PC.NURSE ---
pt removed c-collar and was standing in room. this nurse attempted to stop patient,offered bedpan to pt help pt urinate- pt refuses- sts she will not use a bedpan or commode. educated on importance of spinal immobilization- pt refuses, exited room and walked to bathroom
[2024-11-07 14:24] VITALS: BP 140/78; PULSE 70; RESP 16; TEMP 36.9; O2SAT 98
== END 2024-11-07 14:25 | disposition home or self-care (01) ==
PROVIDERS: Emergency Provider Emergency Medicine; PCP Nurse Practitioner Family
DX: M54.12 Radiculopathy, cervical region (principal); R51.9 Headache, unspecified; M54.2 Cervicalgia
CPT/HCPCS: 70450; 72125; 99284

== ENCOUNTER → 2024-11-07 12:11 | Outpatient (BNV) | payer OTHER, SELFPAY | PROVIDERS: Emergency Provider Emergency Medicine; PCP Nurse Practitioner Family; Visit Provider Radiology Diagnostic Radiology | DX: M54.2 Cervicalgia (principal); S09.90XA Unspecified injury of head, initial encounter | CPT/HCPCS: 70450; 72125 ==

== ENCOUNTER 2024-11-11 14:17 | Outpatient (AMB) | payer OTHER, SELFPAY ==
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
--- OUTSIDE RECORDS SUMMARY | 2024-11-11 15:19 | XMS_ITS | Clinical Summary ---
Author Organization [facility] Address [address] [place] [address] Phone Care Team Providers Care Shipyard Painter Helper Name Role Phone Sanchez Rene MD Primary Care Provider Allergies Active Allergy Reactions Criticality Noted Date Comments Amoxicillin 04/23/2019 Doxycycline 04/23/2019 Aushxjfh-4-Qc5 Antimigraine Agents 0 04/23/2019 Medications atenolol (TENORMIN) 25 MG tablet 03/13/2019 Active hydroCHLOROthiaz brionna (MICROZIDE) 12.5 mg capsule 03/05/2019 Act baldemar lisinopril (PRINIVIL,ZESTRI L) 5 MG tablet 03/05/2019 Acti ve MAGNESIUM ORAL Take by mouth. Active riboflavin, vitamin B2, (VITAMIN B-2 ORAL) Take by mouth. Active pyridoxine HCl, vitamin B6, (VITAMIN B-6 ORAL) Take by mouth. Active Active Problems No known active problems Social History Tobacco Use Types Packs/Day Years Used Date Smoking Tobacco: Never Smokeless Tobacco: Never Education Answer Date Recorded Are you interested in more education? Not on roscoe e 07/13/2022 Are you concerned about learning? Not on file 07/13/2022 No 07/13/2022 No 07/13/2022 Digital Access Answer Date Recorded No 08/11/2022 No 08/11/2022 No 08/11/2022 Reliable internet access at home? Not on file 08/11/2022 Device with a working camera? Not on file Comments Unknown Sex and Gender Information Value Date Recorded Sex Assigned at Not on file Legal Sex Female 10:09 AM EST Gender Identity Not on file Sexual Orientation Not on file Last Filed Vital Signs Vital Sign Reading Time Taken Comments Blood Pressure 135/93 04/23/2019 10:25 AM EST Pulse 69 04/23/2019 10:25 AM EST Temperature 37.3 C (99.2 F) 04/23/2019 10:25 AM EST Respiratory Rate 18 04/23/2019 10:25 AM EST Oxygen Saturation 99% 04/23/2019 10:25 AM EST Inhaled Oxygen Concentration - - Weight 78.9 kg (174 lb) 04/23/2019 10:25 AM EST Height 165.1 cm (5' 5 ) 04/23/2019 10:25 AM EST Body Mass Index 28.96 04/23/2019 10:25 AM EST Plan of Treatment Health Maintenance Due Date Last Done Comments Adult Td,Tdap Booster 1980 CREATININE LEVEL 1980 POTASSIUM LEVEL 1980 DEPRESSION SCREENING 1992 HEPATITIS C SCREENING 1998 HIV ONE-TIME SCREENING (18-6 5 YEARS) 1998 PAP SMEAR 2001 MAMMOGRAM 2020 COVID-19 VACCINE ( - 2023-2 5 season) 2023 MENINGOCOCCAL VACCINES (ACWY) Aged Out 08/26/2018 No longer eligible based on patient's age to complete this topic SMOKING STATUS SCREENING (On ce After 26 Yrs) Completed 04/23/2019 HEPATITIS A VACCINES Aged Out No long er eligible based on patient's age to complete this topic HIB VACCINES Aged Out No longer eligi ble based on patient's age to complete this topic MENINGOCOCCAL VACCINES (B) Aged Out N o longer eligible based on patient's age to complete this topic PNEUMOCOCCAL VACCINES (0-49 years) Aged Out No longer eligible based on patient's age to complete this topic Medical Devices Not on file Insurance [employer] BENEFITS ADMINISTRATORS [email or web address] ADMIN[employer]RAT[employer] Member Subscriber Plan / Payer (Ef fective 2019-Present) Name:Asha Sanchez Relation to Subscriber:Self Name:Asha Sanchez Payer ID:[id number] ([facility]) Type:PPO Address: [place] [id number] [email or web address] ADMINISTRATORS [employer] BENEFITS ADMINISTRATORS [email or web address] ADMINISTRATORS [email or web address] ADMINISTRATORS [employer] BENEFITS ADMINISTRATORS [email or web address] ADMINISTRATORS [email or web address]MIN[employer] Care Teams Shipyard Painter Helper Relationship Specialty Start Date End Date Sanchez Rene MD [address] [place] [address] PCP - General 04/23/19 Additional Source Comments The information contained in this document represents components of the legal health record. It is not the complete legal health record.[facility]
== END 2024-11-11 15:17 | disposition home or self-care (01) ==
LOC: HO.HSM 14:18
PROVIDERS: PCP Nurse Practitioner Family; Visit Provider Psychiatry & Neurology Neurology
DX: S13.9XXA Sprain of joints and ligaments of unspecified parts of neck, initial encounter (principal); M54.50 Low back pain, unspecified; M43.6 Torticollis
CPT/HCPCS: 99214

== ENCOUNTER 2024-11-11 15:07 | Outpatient (REF) | payer OTHER, SELFPAY ==
--- NOTE | ~2024-11-11 | XR_ITS ---
EXAMINATION: XR CERVICAL SPINE CLINICAL INFORMATION: S13.9XXA - Sprain of joints and ligaments of unspecified parts of neck, ... COMPARISON: July 16, 2022 TECHNIQUE: AP oblique and lateral views. Atlantoodontoid view. FINDINGS: Craniocervical junction is intact. Endplate sclerosis small marginal osteophyte formation and decreased intervertebral disc height C6-7. Reverse curvature apex at C5-6. No gross malalignment. No acute cortical disruption. No gross neuroforamina stenosis. No lytic or blastic lesions. XR/XR cervical spine 4V IMPRESSION: Cervical spondylosis C6-7 and to a lesser extent C5-6 resulting in reverse curvature apex at C5-6. Overall slight worsening. Electronically signed by: Miguelito Hoover MD 11/11/2024 03:44 PM EDT
--- NOTE | ~2024-11-11 | XR_ITS ---
EXAMINATION: XR LUMBOSACRAL SPINE CLINICAL INFORMATION: M54.50 - Low back pain, unspecified COMPARISON: July 16, 2022 TECHNIQUE: Three views of the lumbosacral spine. FINDINGS: There are 5 nonrib-bearing lumbar segments. Again noted is mild dextroscoliosis. Again seen is mild superior endplate compression fracture of L1. There is stable subtle retrolisthesis at L2-3 and L3-4. Vertebral body height and alignment is preserved otherwise. XR/XR lumbar spine 2-3V IMPRESSION: Stable. Chronic superior endplate L1 fracture. Mild dextroscoliosis. Electronically signed by: Viktor Tillman MD 11/11/2024 03:45 PM EDT
--- NOTE | ~2024-11-11 | XR_ITS ---
EXAMINATION: XR SHOULDER, RIGHT CLINICAL INFORMATION: M25.511 - Pain in right shoulder COMPARISON: None available. TECHNIQUE: Three views of the right shoulder. FINDINGS: AC joint is intact and not degenerated. Glenohumeral joint is intact and not degenerated. There is no dislocation. XR/XR shoulder RT min 2V IMPRESSION: Unremarkable right shoulder Electronically signed by: Viktor Tillman MD 11/11/2024 03:43 PM EDT
== END 2024-11-11 15:08 | disposition home or self-care (01) ==
LOC: HO.XRAY 15:07
PROVIDERS: Visit Provider Psychiatry & Neurology Neurology
DX: M25.511 Pain in right shoulder (principal); M54.50 Low back pain, unspecified; S13.9XXA Sprain of joints and ligaments of unspecified parts of neck, initial encounter
CPT/HCPCS: 72050; 72100; 73030

== ENCOUNTER → 2024-11-11 15:10 | Outpatient (BNV) | payer OTHER, SELFPAY | PROVIDERS: Visit Provider Radiology Diagnostic Radiology | DX: M50.323 Other cervical disc degeneration at C6-C7 level (principal); M54.50 Low back pain, unspecified; M25.511 Pain in right shoulder | CPT/HCPCS: 72050; 72100; 73030 ==

== ENCOUNTER 2024-11-23 12:37 | Outpatient (AMB) | payer OTHER, SELFPAY ==
[2024-11-23 12:35] VITALS: BP 168/85; PULSE 66; RESP 16; O2SAT 99; BMI 27.1
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
--- OUTSIDE RECORDS SUMMARY | 2024-11-23 14:48 | XMS_ITS | Clinical Summary ---
Author Organization [facility] Address [address] [place] [address] Phone Care Team Providers Care Primary Teacher Name Role Phone Sanchez Rene MD Primary Care Provider Allergies Active Allergy Reactions Criticality Noted Date Comments Amoxicillin 04/23/2019 Doxycycline 04/23/2019 Grdtdigf-0-Ak7 Antimigraine Agents 0 04/23/2019 Medications atenolol (TENORMIN) [...] YEARS) 1998 PAP SMEAR 2001 MAMMOGRAM 2020 INFLUENZA VACCINE (#1) 2024 0, 12/23/2018, 12/03/2018 COVID-19 VACCINE (2023-2 5 season) 2024 MENINGOCOCCAL VACCINES (ACWY) Aged Out 08/26/2018 No [...] (0-49 years) Aged Out No longer eligible b ased on patient's age to complete this topic Medical Devices Not on file Insurance [place] [employer] BENEFITS ADMINISTRATORS [employer] ADMINISTRATORS [employer] ADMINISTRATORS [employer] ADMINISTRATORS [employer] BENEFITS ADMINISTRATORS [employer] ADMINISTRATORS [employer] ADMINISTRATORS [employer] ADMINISTRATORS [employer] ADMINISTRATORS Care Teams Primary Teacher Relationship Specialty Start Date End Date Sanchez Rene MD [address] [place] [address] PCP - General 04/23/19 Additional Source Comments The information contained in this document represents components of the legal health record. It is not the complete legal health record.[facility]
== END 2024-12-08 14:49 | disposition home or self-care (01) ==
LOC: HO.PMC 12:37
PROVIDERS: PCP Nurse Practitioner Family; Visit Provider Internal Medicine
DX: S13.4XXA Sprain of ligaments of cervical spine, initial encounter (principal); S13.9XXA Sprain of joints and ligaments of unspecified parts of neck, initial encounter
CPT/HCPCS: 20553; 99214

== ENCOUNTER → 2024-11-23 12:37 | Outpatient (BNVA) | payer OTHER, SELFPAY | PROVIDERS: PCP Nurse Practitioner Family; Visit Provider Internal Medicine | DX: M43.12 Spondylolisthesis, cervical region (principal); M43.16 Spondylolisthesis, lumbar region; M54.2 Cervicalgia; S13.9XXD Sprain of joints and ligaments of unspecified parts of neck, subsequent encounter; S13.4XXD Sprain of ligaments of cervical spine, subsequent encounter; G89.29 Other chronic pain; M79.18 Myalgia, other site | CPT/HCPCS: 20553; J2795 ==

== ENCOUNTER → 2024-11-25 08:30 | Outpatient (BNV) | payer OTHER, SELFPAY | PROVIDERS: PCP Nurse Practitioner Family; Visit Provider Internal Medicine | DX: Z12.31 Encounter for screening mammogram for malignant neoplasm of breast (principal) | CPT/HCPCS: 77063; 77067 ==

== ENCOUNTER 2024-11-25 08:34 | Outpatient (REF) | payer OTHER, SELFPAY ==
--- NOTE | ~2024-11-25 | MM_ITS ---
EXAMINATION: MM SCREENING DIGITAL BREAST TOMOSYNTHESIS, BILATERAL CLINICAL INFORMATION: Screening. Asymptomatic. COMPARISON: Mammography: Comparison is made with available priors TECHNIQUE: Digital breast mammography with tomosynthesis is performed in both the craniocaudal and mediolateral oblique views along with computer-aided detection (CAD). FINDINGS: There are scattered areas of fibroglandular density (ACR BI-RADS breast composition Category b). There are no significant masses, abnormal calcifications, or other abnormalities. MM/MM tomosynthesis screening BI IMPRESSION: No mammographic evidence of malignancy. ASSESSMENT: BI-RADS BI-RADS 1 - Negative RECOMMENDATION: Routine annual mammography screening. 1 year F/U This examination should not preclude the clinical evaluation of a suspicious palpable abnormality. This patient's information was entered into a reminder system with a target due date for their next mammogram. Electronically signed by: Holley Escoto DO 11/30/2024 01:49 PM EDT
--- OUTSIDE RECORDS SUMMARY | 2024-11-25 09:54 | XMS_ITS | Clinical Summary ---
Author Organization [facility] Address [address] [place] [address] Phone Care Team Providers Care Real Estate Office Manager Name Role Phone Sanchez Rene MD Primary Care Provider Allergies Active Allergy Reactions Criticality Noted Date Comments Amoxicillin 04/23/2019 Doxycycline 04/23/2019 Oxzornbg-0-Vd2 Antimigraine Agents 0 04/23/2019 Medications atenolol (TENORMIN) [...] topic Medical Devices Not on file Insurance [place] [employer] BENEFITS ADMINISTRATORS [employer] ADMINISTRATORS [employer] ADMINISTRATORS [employer] ADMINISTRATORS [employer] BENEFITS ADMINISTRATORS [employer] ADMINISTRATORS [employer] ADMINISTRATORS [employer] ADMINISTRATORS [employer] ADMINISTRATORS Care Teams Real Estate Office Manager Relationship Specialty Start Date End Date Sanchez Rene MD [address] [place] [address] PCP - General 04/23/19 Additional Source Comments The information contained in this document represents components of the legal health record. It is not the complete legal health record.[facility]
== END 2024-11-25 08:35 | disposition home or self-care (01) ==
LOC: HO.MAMMO 08:34
PROVIDERS: PCP Nurse Practitioner Family; Visit Provider Nurse Practitioner Family
DX: Z12.31 Encounter for screening mammogram for malignant neoplasm of breast (principal)
CPT/HCPCS: 77063; 77067

== ENCOUNTER 2025-01-06 08:34 | Outpatient (REF) | payer OTHER, SELFPAY ==
--- OUTSIDE RECORDS SUMMARY | 2025-01-06 08:57 | XMS_ITS | Clinical Summary ---
Author Organization [facility] Address [address] [place] [address] Phone Care Team Providers Care Janitor Head Name Role Phone Sanchez Rene MD Primary Care Provider Allergies Active Allergy Reactions Criticality Noted Date Comments Amoxicillin 04/23/2019 Doxycycline 04/23/2019 Ogdiguvc-5-Ub2 Antimigraine Agents 0 04/23/2019 Medications atenolol (TENORMIN) [...] (#1) 2024 0, 12/23/2018, 12/03/2018 COVID-19 VACCINE (2024-2 6 season) 2024 MENINGOCOCCAL VACCINES (ACWY) Aged Out [...] topic Medical Devices Not on file Insurance [place] [employer] BENEFITS ADMINISTRATORS [employer] ADMINISTRAT[employer] ADMINISTRATORS [employer] ADMINISTRATORS [employer] BENEFITS ADMINISTRATORS [employer] ADMINISTRATORS [employer] ADMINISTRATORS [employer] ADMINISTRATORS [employer] ADMINISTRATORS Care Teams Janitor Head Relationship Specialty Start Date End Date Sanchez Rene MD [address] [place] [address] PCP - General 04/23/19 Additional Source Comments The information contained in this document represents components of the legal health record. It is not the complete legal health record.[facility]
== END 2025-01-06 08:35 | disposition home or self-care (01) ==
LOC: HO.NEURO 08:34
PROVIDERS: PCP Nurse Practitioner Family; Visit Provider Psychiatry & Neurology Neurology
DX: Z13.89 Encounter for screening for other disorder (principal)

== ENCOUNTER 2025-01-13 08:34 | Outpatient (REF) | payer OTHER, SELFPAY ==
--- NOTE | 2025-01-13 07:23 | EMG_ITS ---
Reason: M43.6 Torticollis Referred by:?Dr Posadas Procedure done: Botox with needle electromyography for guidance during chemodenervation procedure Botulinum toxin for Torticollis:? Consent:?After informed consent was obtained explaining risks, benefits, side- effects and alternatives, under aseptic precautions Botox was injected in the following amounts and muscles.? Prep:?300 units?Botulinum Toxin, lot DO [id number] , Exp. :? was reconstituted in the usual manner with 3ml preservative-free normal saline. Muscles & Units Injected:?120 units botox injected in 3 sites in left SCM ( 3x40),?120 units in right splenius capitis, semispinalis, and 60 units in right cervical paraspinal and trapezius in 6 sites x 10 units.? Post-Procedure:?The patient tolerated the procedure well. There was no blood loss or adverse effect. The patient will make a follow-up appointment in 3-4 weeks.? Coding: MTDD
--- OUTSIDE RECORDS SUMMARY | 2025-01-13 09:07 | XMS_ITS | Clinical Summary ---
Author Organization [facility] Address [address] [place] [address] Phone Care Team Providers Care Correction Officer Reformatory Name Role Phone Sanchez Rene MD Primary Care Provider Allergies Active Allergy Reactions Criticality Noted Date Comments Amoxicillin 04/23/2019 Doxycycline 04/23/2019 Dszqwciw-0-Oi5 Antimigraine Agents 0 04/23/2019 Medications atenolol (TENORMIN) [...] topic Medical Devices Not on file Insurance [employer] BENEFITS ADMINISTRATORS [employer] ADMINISTRATORS [employer] ADMINISTRATORS [employer] ADMINISTRATORS [employer] BENEFITS ADMINISTRATORS [employer] ADMINISTRATORS [employer] ADMINISTRATORS [employer] ADMINISTRATORS [employer] ADMINISTRATORS Care Teams Correction Officer Reformatory Relationship Specialty Start Date End Date Sanchez Rene MD PCP - General 04/23/19 Additional Source Comments The information contained in this document represents components of the legal health record. It is not the complete legal health record.[facility]
== END 2025-01-13 08:35 | disposition home or self-care (01) ==
LOC: HO.NEURO 08:34
PROVIDERS: PCP Nurse Practitioner Family; Visit Provider Psychiatry & Neurology Neurology
DX: M43.6 Torticollis (principal)
CPT/HCPCS: 64616; 64642; 64644; 95874; J0586

== ENCOUNTER 2025-01-28 08:16 | Outpatient (RCR) | payer OTHER, SELFPAY ==
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
== END 2025-01-28 15:26 | disposition home or self-care (01) ==
LOC: HO.PT 08:16
PROVIDERS: PCP Nurse Practitioner Family; Visit Provider Psychiatry & Neurology Neurology
DX: M54.50 Low back pain, unspecified (principal); S13.9XXD Sprain of joints and ligaments of unspecified parts of neck, subsequent encounter
CPT/HCPCS: 97110; 97140; 97161

== ENCOUNTER 2025-02-02 16:38 | Outpatient (REF) | payer OTHER, SELFPAY ==
--- NOTE | ~2025-02-02 | MR_ITS ---
EXAMINATION: MR LUMBAR SPINE WITHOUT CONTRAST CLINICAL INFORMATION: M54.16. Radiculopathy, lumbar region. COMPARISON: None available. TECHNIQUE: MRI of the lumbar spine was obtained using routine sequences without contrast. FINDINGS: Last rib-bearing vertebra labeled T12. Prominent right transverse processes of L5. No bone marrow STIR signal abnormality. Superior endplate compression deformity representing 30-40% volume loss of the anterior superior aspect of vertebral body L1. No retropulsion. Schmorl node is present. Multilevel disc desiccation and marginal osteophyte formation throughout the axial skeleton pronounced at L4-5 and L3-4. Focal hyperintense T2 signal in the posterior intervertebral disc L3-4 and L4-5 likely focal annular fissures. There is normal alignment. Conus medullaris ends at inferior endplate of T12 with normal signal. T11-12: No disc herniation. No neuroforamina stenosis. T12-L1: No disc herniation. Facet joint hypertrophy. No central spinal canal or neuroforamina stenosis. L1-2: Broad-based disc bulging. Facet joint hypertrophy. No central spinal canal or neuroforamina stenosis. L2-3: Broad-based disc bulging. Facet joint hypertrophy. No central spinal canal or neuroforamina stenosis. L3-4: Central broad-based disc herniation resulting in ventral deformity of the thecal sac and reduced AP diameter. Bilateral neuroforamina narrowing secondary to facet joint hypertrophy. L4-5: There is a right subarticular and foraminal broad-based herniated disc likely encroaching the right L5 nerve root on its lateral recess. Bilateral facet joint hypertrophy as well as ligamentum flavum. Bilateral neuroforamina narrowing. L5-S1: Broad-based disc bulging. Facet joint hypertrophy. Reduced AP diameter thecal sac. No compression upon neural elements. No gross neuroforamina stenosis. There is a perineural cyst at right S2. No prevertebral compartment hematoma, mass or fluid collection. Slight asymmetric volume loss right psoas muscle. Fatty atrophy of the lower lumbar muscles from L4 to the sacrum. MR/MR lumbar spine wo con IMPRESSION: Right subarticular and foraminal broad-based disc herniation at L4-5 encroaching right L5 nerve roots. Central broad-based herniated disc at L3-4 and spondylosis resulting in bilateral neuroforamina narrowing and mild central spinal canal stenosis. Old superior endplate compression deformity, L1 with associated Schmorl nodes. Electronically signed by: Miguelito Hoover MD 02/03/2025 08:03 AM MARIS DUFFY
--- OUTSIDE RECORDS SUMMARY | 2025-02-03 13:27 | XMS_ITS | Clinical Summary ---
Author Organization [facility] Address [address] [place] [address] Phone Care Team Providers Care Commissioned Security Officer Name Role Phone Sanchez Rene MD Primary Care Provider Allergies Active Allergy Reactions Criticality Noted Date Comments Amoxicillin 04/23/2019 Doxycycline 04/23/2019 [id number] Antimigraine Agents 0 04/23/2019 Medications atenolol (TENORMIN) [...] on patient's age to complete this topic IPV VACCINES Aged Out No longer eligi ble based on patient's age to complete this topic MENINGOCOCCAL VACCINES (B) Aged Out N o longer eligible based on patient's age to complete this topic PNEUMOCOCCAL VACCINES (0-49 years) Aged Out No longer eligible b ased on patient's age to complete this topic Medical Devices Not on file Insurance [facility] [employer] Member Subscriber Plan / Payer (Ef fective 2019-Present) Name:Asha Sanchez Relation to Subscriber:Self Name:Asha Sanchez Payer ID:[id number] ([facility]) Type:PPO Address: [place] [phone] [employer] Member Subscriber Plan / Payer (Ef fective 2019-) Name:Asha Sanchez Relation to Subscriber:Self Name:Asha Sanchez Payer ID:[id number] ([facility]) Type:PPO Address: [place] [phone] [employer]MIN[employer] ADMIN[employer]ORS [employer]MIN[employer] Care Teams Commissioned Security Officer Relationship Specialty Start Date End Date Sanchez Rene MD PCP - General 04/23/19 Additional Source Comments The information contained in this document represents components of the legal health record. It is not the complete legal health record.[facility]
--- OUTSIDE RECORDS SUMMARY | 2025-02-03 13:27 | XMS_ITS | Data Portability ---
Author Organization [place] - [facility], Allergy Address [address] [address] Care Team Providers Care Roller Varnisher Name Role Phone SOFIE KLEIN Primary Care Provider Assessment No assessment recorded. Plan of Treatment Reminders Order Date Submit Date Provider Last Modified By Organization Details Last Modified Time Details Appointments None record ed. Lab None record ed. Referral None record ed. Procedures None record ed. Surgeries None record ed. Imaging None record ed. Medication Orders None record ed. Patient TargetsNo targets recorded. Patient InstructionsNo instructions recorded. Reason for Referral None Reported. Results Created Date Observation Date Name Description Value Unit Range Abnormal Flag Note LastModifiedBy Organization Detail LastModifiedTime 11/10/19 audio gram No observ ation record ed. BARCODE Not Available 2024 16:55:27 11/14/19 25 09/05/2024 MRI, brain , w/o contr ast No observ ation record ed. [email or web address] Not Available 10/17 09:27:41 11/14/1908/21/2024 MRI, brain + inter nal audit ory canal , w/wo contr ast No observ ation record ed. [email or web address] Not Available 10/17 09:33:23 Result Notes None recorded. Problems Name Problem SNOMED Code Status Onset Date Resolution Date Notes Provider Name and Address Organization Details Recorded Time Dystonia 66389865 Active 2023 Dystonia, unspecifi ed; Note: Date Diagnosed : 07/17/2023 1:16 PM (G24.9) Not Available [facility] 03:19:38 Abnormal findings on diagnosti c imaging of skull and head 238611338 Active 2023 Abnormal findings on diagnosti c imaging of skull and head, not elsewhere classifie d; Note: Date Diagnosed : 07/17/2023 1:07 PM (R93.0) Not Available [facility] 4 03:19:38 Dysfuncti on of right eustachia n tube 39244901795 25780 Active 2024 SY GARAY [facility] [address] [facility],[place] [address], [place], [address] , [facility] - [facility] [place] 5 15:12:58 Abnormal auditory perceptio n 81744951 Active 2024 SY GARAY [address],[place] [address], [place], [address] , [facility] - [facility] [place] 5 15:13:13 Tinnitus of vascular origin 666328940 Active 2024 PRICE LAZO MD [address] [place] [address],[place] [address], [place], [address] , [facility] - [facility] [place] 15:54:20 Problem Notes None recorded. Procedures Surgical History Date Name Laterality Status Provider Name and Address Organization Details Recorded Time 11/06/2024 Air & Speech Audio with Tymps - 71381, 46259 & 77000 completed SY GARAY, [address],[place] [address], [place], [address], [facility] - [facility] [place] [facility] 11/06/2024 15:12:36 Imaging Results None recorded. Procedure Notes None recorded. Medical Equipment None Reported. Allergies Allergen ID Allergen Name Allergen Category Reaction Reaction Severity Criticality Documentation Date Start Date Code Code System Note Provider Name and Address Organization Details Recorded Time 468660 amoxicill in medicatio n other Not available Not available 10/18/2023 723 RxNorm React ion: Unkno wn; Not Available [facility] 4 00:39:35 154581 Product containin g penicilli n (product) medicatio n other Not available Not available 10/18/2023 72298 8001 SNOMED React ion: Unkno wn; Not Available [facility] 4 00:39:36 Medications Name Sig Start Date Stop Date Status Note LastModified by Organization Details LastModified Time metformin 500 mg tablet TAKE 1 TABLET BY MOUTH AT BEDTIME active Not Available Not Available No t Available doxycycli ne hyclate 100 mg capsule TAKE 1 CAPSULE BY MOUTH TWICE DAILY 11/06 completed Not Available Not Available Not Available chlorzoxa zone 500 mg tablet TAKE 1 TABLET BY MOUTH THREE TIMES DAILY active Not Available Not Available No t Available atenolol 25 mg tablet TAKE 1 TABLET BY MOUTH DAILY active Not Available Not Available No t Available baclofen 10 mg tablet TAKE 1 TABLET BY MOUTH TWICE DAILY NEEDED FOR MUSCLE SPASM active Not Available Not Available No t Available lisinopri l 10 mg tablet TAKE 1 TABLET BY MOUTH DAILY active Not Available Not Available No t Available ondansetr on 4 mg disintegr ating tablet DISSOLVE 1 TABLET ON THE TONGUE EVERY 8 HOURS NEEDED FOR NAUSEA OR VOMITING active Not Available Not Available No t Available Botox 100 unit injection active Medicati on ID: [id number] B rand Name: Botox Se nd Method: E-Prescr ibed Sub s Allowed: subs OK Medic ationGen ericName : Botox Not Available Not Available Not Available azithromy joseph 500 mg tablet TAKE 1 TABLET BY MOUTH EVERY DAY 11/06 completed Not Available Not Available Not Available tizanidin e 4 mg capsule TAKE 1 CAPSULE BY MOUTH THREE TIMES DAILY NEEDED FOR MUSCLE SPASMS active Not Available Not Available No t Available Nurtec ODT 75 mg disintegr ating tablet DISSOLVE 1 TABLET ON THE TONGUE DAILY NEEDED FOR MIGRAINE HEADACHE 11/06 completed Not Available Not Available Not Available Vitals Date Recorded Body height Body mass index (BMI) Body weight Provider Name and Address Organization Details Last Updated DateTime 11/06/2024 170.18 cm 27.3 kg/m2 63430.07 g Che Perez [place] - [facility] 11/06/2024 15:27:23 Social History None recorded. Functional Status None recorded. Mental Status None recorded. Family History Nothing Reported. Medical History No medical history recorded. Gynecological HistoryNo gynecological history recorded. Obstetrics History GPAL:G 0 P 0 0 0 0 Past Encounters Encounter ID Performer Location Encounter Start Date Encounter Closed Date Diagnosis/Indication Diagnosis SNOMED-CT Code Diagnosis ICD10 Code Diagnosis IMO Codes Diagnosis Note [id number] PRICE LAZO MD [facility] [address] [place] [address] 11/06/2024 14:55:46 11/06/2024 16:39:23 Abnormal auditory perception [id number] H93.299 [id number] Right Ear:Normal hearing with excellent speech discrimina tion.Type A tympanogra m.Left Ear:Normal hearing with excellent speech discrimina tion.Type A tympanogra m. Tinnitus o f vascular origin 848837751 H93.A1 [id number] 44-year-ol d female presents today for evaluation of pulsatile tinnitus in the right ear which improved after she had lisinopril dosing increased. She did have imaging including MRA, MRV and MRI which was notable for a high riding jugular bulb on the right. There are no bruits on exam today. Audiometri c testing shows normal hearing.We discussed that the high riding jugular bulb could be a risk factor for the pulsatile tinnitus. She is asymptomat ic now. I would recommend CT of the temporal bone to evaluate for any bony dehiscence if her symptoms worsen again and are bothersome enough to consider potential interventi on. Health Concerns Section Related Observation LastModified by Organization Detai ls LastModified Time None Recorded Concern Status LastModified by Organization Details LastModified Time None Recorded Advance Directives Directive None Recorded Payers Insurance Date Sequence Insurance Name Policy Number Policy Sims Covered Member ID Sims Member ID Guarantor Name 12/28/2024 1 [employer] [place] ([facility]) [id number] Asha Sanchez [id number] Asha Sanchez Notes Date Note Type Note Provider Name and Address Organization Details Recorded Time 11/06/2024 text/html Pulsatile tinnitus for 2 weeks in AugustLisinopril increased then improved On the duplex mild compression of R IJV when turns to the right. PTH elevated, nuclear medicine test normal HTN 120/80s now No seasonal allergiesNormal thyroidMild anemia in pastFerritin a little lowH/H She had MRV of the with and without contrast, comparison made to MRA and MRI of the brain in August. This showed a dominant right sided venous drainage system with a high riding jugular bulb. There was normal imaging of the IACs. The paranasal sinuses were clear. There were moderate degenerative changes in the left TM joint. PRICE LAZO MD [address] [place] [address], [place], [address], [facility] - [facility] 11/11/2024 11:35:03 OBGyn Episode No OBEpisode recorded.
--- OUTSIDE RECORDS SUMMARY | 2025-02-03 13:27 | XMS_ITS | Continuity of Care Document ---
Author Organization [place] - [facility], [facility] Address [address] [place] [address] Care Team Providers Care Leak Patcher Name Role Phone SOFIE KLEIN Primary Care [...] and Address Organization Details Recorded Time Dystonia 48535409 Active 2023 Dystonia, unspecifi ed; Note: Date Diagnosed : 07/17/2023 1:16 PM (G24.9) Not Available [facility] 08/02/202 4 03:19:38 Abnormal findings on diagnosti c imaging of skull and head 799555509 Active 2023 Abnormal findings on diagnosti c imaging of skull and head, not elsewhere classifie d; Note: Date Diagnosed : 07/17/2023 1:07 PM (R93.0) Not Available [facility] 4 03:19:38 Dysfuncti on of right eustachia n tube 24299158933 74678 Active 2024 SY GARAY AUD [address] [facility],[place] [address], [facility] [place], [address] , [facility] - [facility] [place] 5 15:12:58 Abnormal auditory perceptio n 69704632 Active 2024 SY GARAY [facility] [address] [facility],[place] [address], [place] [place], [address] , [facility] - [facility] [place] 5 15:13:13 Tinnitus of vascular origin 537886221 Active 2024 PRICE LAZO MD [address] [facility],[place] [address], [place] [place], [address] , [facility] - [facility] [place] 15:54:20 Problem Notes None recorded. Procedures Surgical History Date Name Laterality Status Provider Name and Address Organization Details Recorded Time 11/06/2024 Air & Speech Audio with Tymps - 58070, 58367 & 53640 completed SY GARAY [address],[place] [address], [place], [address], [facility] - [facility] [place] 11/06/2024 15:12:36 Imaging Results None recorded. Procedure Notes None recorded. Medical Equipment None Reported. Allergies Allergen ID Allergen Name Allergen Category Reaction Reaction Severity Criticality Documentation Date Start Date Code Code System Note Provider Name and Address Organization Details Recorded Time 621329 amoxicill in medicatio n other Not available Not available 10/18/2023 723 RxNorm React ion: Unkno wn; Not Available [facility] 4 00:39:35 979079 Product containin g penicilli n (product) medicatio n other Not available Not available 10/18/2023 52692 8001 SNOMED React ion: Unkno wn; Not Available [facility] 4 00:39:36 Medications Name Sig Start Date [...] 100 unit injection active Medicati on ID: [id number] B rand Name: Botox Se nd Method: [...] Updated DateTime 11/06/2024 170.18 cm 27.3 kg/m2 25788.07 g Che Perez [place] - [facility] 11/06/2024 15:27:23 Social History None recorded. Functional Status None recorded. Mental Status None recorded. Family History Nothing Reported. Medical History No medical history recorded. Gynecological HistoryNo gynecological history recorded. Obstetrics History GPAL:G 0 P 0 0 0 0 Past Encounters Encounter ID Performer Location Encounter Start Date Encounter Closed Date Diagnosis/Indication Diagnosis SNOMED-CT Code Diagnosis ICD10 Code Diagnosis IMO Codes Diagnosis Note [id number] PRICE LAZO MD [facility] [address] [place] [address] 11/06/2024 14:55:46 11/06/2024 16:39:23 Abnormal auditory perception [id number] H93.299 [id number] Right Ear:Normal hearing with excellent speech discrimina tion.Type A tympanogra m.Left Ear:Normal hearing with excellent speech discrimina tion.Type A tympanogra m. Tinnitus o f vascular origin 064637642 H93.A1 [id number] 44-year-ol d female presents today for evaluation [...] by Organization Details LastModified Time None Recorded Payers Encounter Date Sequence Insurance Name Policy Number Policy Sims Covered Member ID Sims Member ID Guarantor Name 11/06/2024 1 [employer] [place]) [id number] Asha Sanchez [id number] Asha Sanchez Notes Date Note Type [...] the left TM joint. PRICE LAZO MD [address] [place] [address], [place], [address], [facility] - [facility] 11/11/2024 11:35:03 OBGyn Episode No OBEpisode recorded.
== END 2025-02-02 16:39 | disposition home or self-care (01) ==
LOC: HO.MRI 16:38
PROVIDERS: PCP Nurse Practitioner Family; Visit Provider Psychiatry & Neurology Neurology
DX: M54.16 Radiculopathy, lumbar region (principal)
CPT/HCPCS: 72148

== ENCOUNTER → 2025-02-02 17:02 | Outpatient (BNV) | payer OTHER, SELFPAY | PROVIDERS: PCP Nurse Practitioner Family; Visit Provider Radiology Diagnostic Radiology | DX: M47.26 Other spondylosis with radiculopathy, lumbar region (principal); Q05.7 Lumbar spina bifida without hydrocephalus; M99.63 Osseous and subluxation stenosis of intervertebral foramina of lumbar region | CPT/HCPCS: 72148 ==

== ENCOUNTER 2025-02-04 08:33 | Outpatient (AMB) | payer OTHER, SELFPAY ==
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
[2025-02-04 08:36] VITALS: BP 173/88; PULSE 69; RESP 16; O2SAT 98; BMI 27.3
== END 2025-02-04 10:18 | disposition home or self-care (01) ==
LOC: HO.PMC 08:33
PROVIDERS: PCP Nurse Practitioner Family; Visit Provider Anesthesiology
DX: M54.16 Radiculopathy, lumbar region (principal)
CPT/HCPCS: 99213